=== PATIENT | male | born 1960 | race Caucasian/White ===

== ENCOUNTER 2016-12-05 12:22 | Inpatient (IN) ==
[2016-12-05 13:50] LABS: Hematocrit 39.2 % (37.5-50.1); Hemoglobin 12.9 g/dL (12.9-16.9); Mean Corpuscular HGB Conc 32.9 g/dL (31.6-35.5); Mean Corpuscular Volume 88.1 fL (83.0-100.0); Mean Platelet Volume 10.4 fL (9.4-12.4); Platelet Count 282 K/mcL (140-400); Red Blood Count 4.45 M/mcL (4.19-5.50); Red Cell Distribution Width 14.3 % (11.5-14.5)
[2016-12-05 14:22] LABS: Lymphocytes # 1.6 K/mcL (0.6-4.6); Neutrophils # 9.8 K/mcL (1.6-8.9); Platelet Estimate Normal (Normal); Reactive Lymphocytes Present (Not Present)
[2016-12-05] MEDS ORDERED: Vancomycin 1,000 MG in D5% in Water 250 ML IVPB ONE (16:45)
[2016-12-05] MEDS ORDERED: Piperacillin/Tazobactam 3.375 GM in D5% in Water (Mini-Bag+) 100 ML IVPB ONE (16:45)
[2016-12-05] MEDS ORDERED: 0.9 % Sodium Chloride 1,000 ML IVC ONE (16:45)
--- NOTE | 2016-12-05 16:52 | Emergency Department Note ---
Disposition Clinical Impression: Cellulitis Qualifiers: Site of cellulitis: extremity Site of cellulitis of extremity: lower extremity Laterality: left Qualified Code(s): L03.116 - Cellulitis of left lower limb Disposition: Admitted As Inpatient Condition: Good General Adult HPI - General Chief complaint: ED Extremity Problem,Nontraumatic Stated complaint: leg swelling Time Seen by Provider: 12/05/16 16:30 Source: patient Limitations: no limitations - History of Present Illness Pain Scale: 10 - Related Data Home Medications Medication Instructions Recorded Confirmed No Known Home Drugs 12/05/16 12/05/16 Allergies Allergy/AdvReac Type Severity Reaction Status Date / Time No Known Allergies Allergy Verified 03/26/15 05:28 Past Medical History - Past Medical History Medical history: Reports: hypertension, other Surgical history: Reports: no surgical history Psychiatric history: Reports: no psych history - Social History Smoking Status: Former smoker Smokeless Tobacco Status: No Alcohol use: Reports: occasionally Drug use: Reports: none Physical Exam - General Limitations: no limitations General appearance: alert, in no apparent distress Course Vital Signs Temperature 99.1 F 12/05/16 12:34 Pulse Rate 84 12/05/16 12:34 Respiratory Rate 18 12/05/16 12:34 Blood Pressure 152/76 12/05/16 12:34 O2 Sat by Pulse Oximetry 95 12/05/16 12:34 Temperature 99.1 F 12/05/16 12:34 Pulse Rate 84 12/05/16 16:33 Respiratory Rate 19 12/05/16 16:33 Blood Pressure 159/81 12/05/16 16:33 O2 Sat by Pulse Oximetry 95 12/05/16 16:33 Oxygen Delivery Oxygen Delivery Room Air Medical Decision Making - Lab Data Result diagrams: 12/05/16 13:35 12/05/16 17:12 Lab Results 12/05/16 12/05/16 12/05/16 Range/Units 13:35 13:35 13:35 WBC 12.9 H (4.3-11.1) K/mcL RBC 4.45 (4.19-5.50) M/mcL Hgb 12.9 (12.9-16.9) g/dL Hct 39.2 (37.5-50.1) % MCV 88.1 (83.0-100.0) fL MCH 29.0 (28.0-33.3) pg MCHC 32.9 (31.6-35.5) g/dL RDW 14.3 (11.5-14.5) % Plt Count 282 (140-400) K/mcL MPV 10.4 (9.4-12.4) fL Seg Neutrophils % 60.0 % Band Neutrophils % 16.0 H (0-4) % Lymphocytes % 12.0 % Monocytes % 8.0 % Metamyelocytes % 2.0 H (0) % Myelocytes % 2.0 H (0) % Neutrophils # 9.8 H (1.6-8.9) K/mcL Lymphocytes # 1.6 (0.6-4.6) K/mcL Monocytes # 1.0 (0.0-1.3) K/mcL Reactive Lymphocytes Present A (Not Present) Platelet Estimate Normal (Normal) PT (9.4-12.1) Seconds INR APTT (26.0-36.0) Seconds Sodium (136-145) mEq/L Potassium (3.5-4.5) mEq/L Chloride (98-109) mEq/L Carbon Dioxide (19-29) mEq/L BUN (8-26) mg/dL Creatinine (0.72-1.25) mg/dL Est GFR ( Amer) (> 60) Est GFR (Non-Af Amer) (> 60) BUN/Creatinine Ratio (6-26) Glucose (70-99) mg/dL Calculated Osmolality (280-300) Lactic Acid (0.5-2.2) mmol/L Calcium (8.6-10.8) mg/dL Phosphorus (2.3-4.7) mg/dL Magnesium (1.6-2.6) mg/dL Total Bilirubin (0.2-1.2) mg/dL Direct Bilirubin (0.0-0.5) mg/dL Indirect Bilirubin (0.0-1.2) mg/dL AST (5-34) Units/L ALT (0-55) Units/L Alkaline Phosphatase (38-126) Units/L Troponin I 0.00 (0-0.03) ng/mL B-Natriuretic Peptide 22 (0-100) pg/mL Serum Total Protein (6.0-8.3) g/dL Albumin (3.5-5.0) g/dL Globulin (2.4-3.5) g/dL Albumin/Globulin Ratio (1.1-2.2) 12/05/16 12/05/16 12/05/16 Range/Units 17:12 17:12 17:12 WBC (4.3-11.1) K/mcL RBC (4.19-5.50) M/mcL Hgb (12.9-16.9) g/dL Hct (37.5-50.1) % MCV (83.0-100.0) fL MCH (28.0-33.3) pg MCHC (31.6-35.5) g/dL RDW (11.5-14.5) % Plt Count (140-400) K/mcL MPV (9.4-12.4) fL Seg Neutrophils % % Band Neutrophils % (0-4) % Lymphocytes % % Monocytes % % Metamyelocytes % (0) % Myelocytes % (0) % Neutrophils # (1.6-8.9) K/mcL Lymphocytes # (0.6-4.6) K/mcL Monocytes # (0.0-1.3) K/mcL Reactive Lymphocytes (Not Present) Platelet Estimate (Normal) PT 12.4 H (9.4-12.1) Seconds INR 1.1 APTT 29.1 (26.0-36.0) Seconds Sodium 137 (136-145) mEq/L Potassium 3.0 L (3.5-4.5) mEq/L Chloride 98 (98-109) mEq/L Carbon Dioxide 28 (19-29) mEq/L BUN 9 (8-26) mg/dL Creatinine 0.96 (0.72-1.25) mg/dL Est GFR ( Amer) > 60 (> 60) Est GFR (Non-Af Amer) > 60 (> 60) BUN/Creatinine Ratio 9 (6-26) Glucose 122 H (70-99) mg/dL Calculated Osmolality 284 (280-300) Lactic Acid 0.9 (0.5-2.2) mmol/L Calcium 9.4 (8.6-10.8) mg/dL Phosphorus 3.4 (2.3-4.7) mg/dL Magnesium 1.7 (1.6-2.6) mg/dL Total Bilirubin 0.6 (0.2-1.2) mg/dL Direct Bilirubin 0.2 (0.0-0.5) mg/dL Indirect Bilirubin 0.4 (0.0-1.2) mg/dL AST 24 (5-34) Units/L ALT 12 (0-55) Units/L Alkaline Phosphatase 78 (38-126) Units/L Troponin I (0-0.03) ng/mL B-Natriuretic Peptide (0-100) pg/mL Serum Total Protein 7.3 (6.0-8.3) g/dL Albumin 2.7 L (3.5-5.0) g/dL Globulin 4.6 H (2.4-3.5) g/dL Albumin/Globulin Ratio 0.6 L (1.1-2.2) Attestation Statement - Attestation Attestation: I examined this patient and my medical decision-making was reviewed with the COOKING SHOW HOST/PA/Advanced Practice Nurse/Resident Physician. I agree with the documented findings, disposition and treatment plan as described except to the extent set forth below. Patient had emergency department complaining of left leg infection. History of the same multiple times. Patient denies fever. Denies chest pain or trouble breathing. On examination of the erythema warmth and swelling to the left rizo. No areas of fluctuance. Plan. Patient has a bandemia 15%. We will start IV antibiotics and admit. Will rule out for DVT. 30 minutes of critical care exclusive of separately billable procedures. Negative for DVT. Admitted to medicine.
--- NOTE | 2016-12-05 17:10 | Emergency Department Note ---
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 He has had many episodes of cellulitis to his LLE and this is simliar in presentation. Patinet states that he has been experiencing fevers with nausea and vomitting and is concerned he may have another infection in his leg. Aryanet states rigors/chills and subjective fevers have been present and this has been going on for the past 4 days. Aryanet denies chest pain, shortness of breath, abdominal pain. He has no history of DVTs in the past. Movemenet makes it worse. Pain Scale: 10 - Related Data Home Medications Medication Instructions Recorded Confirmed No Known Home Drugs 12/05/16 12/05/16 Allergies Allergy/AdvReac Type Severity Reaction Status Date / Time No Known Allergies Allergy Verified 03/26/15 05:28 Constitutional: Reports: fever, chills, weakness. Denies: weight change Eyes: Denies: eye pain, eye discharge, vision change ENT ED: Denies: ear pain, throat pain, dental pain, hearing loss, epistaxis, congestion, dysphagia Cardiovascular: Denies: chest pain, palpitations, dyspnea on exertion, edema, syncope Respiratory: Denies: cough, dyspnea, wheezes, hemoptysis, stridor Gastrointestinal: Denies: abdominal pain, nausea, vomiting, diarrhea, constipation, hematemesis, melena, hematochezia Genitourinary: Denies: urgency, dysuria, frequency, hematuria Musculoskeletal: Reports: other (LLE swelling and infection). Denies: back pain , neck pain, arthralgia, myalgia Integumentary: Denies: rash, abrasion, lesions Neurological: Denies: headache, weakness, numbness, paresthesias, confusion, abnormal gait, vertigo Psychiatric: Denies: anxiety, depression, suicidal thoughts, homicidal thoughts , auditory hallucinations, visual hallucinations Endocrine: Denies: fatigue Hematological/Lymphatic: Denies: easy bleeding, easy bruising Allergic/Immunologic: Denies: facial swelling, urticaria Past Medical History - Past Medical History Medical history: Reports: hypertension, other Surgical history: Reports: no surgical history Psychiatric history: Reports: no psych history - Social History Smoking Status: Former smoker Smokeless Tobacco Status: No Alcohol use: Reports: occasionally Drug use: Reports: none Physical Exam - General Limitations: no limitations General appearance: alert, in no apparent distress - Head Head exam: atraumatic, normocephalic, normal inspection - Eye Eye exam: Present: normal appearance, PERRL, EOMI - Expanded Eye Exam Pupils: Left: reactive - ENT ENT exam: normal exam, normal oropharynx, mucous membranes moist - Expanded ENT Exam External ear exam: Present: normal external inspection Mouth exam: Present: normal external inspection Teeth exam: Present: normal inspection Throat exam: Present: normal inspection - Neck Neck exam: Present: normal inspection, full ROM, trachea midline - Chest Chest inspection: Present: normal inspection, symmetric chest wall rise - Respiratory Respiratory exam: Present: normal lung sounds bilaterally - Cardiovascular Cardiovascular exam: Present: regular rate, normal rhythm, normal heart sounds - Abdominal Exam Abdominal exam: Present: soft, Non-Tender. Absent: tenderness, distention, guarding, rebound, rigidity - Extremities Exam Extremities exam: Present: normal inspection, full ROM. Absent: tenderness, pedal edema - Expanded Upper Extremity Exam Shoulder exam: Present: normal inspection, full ROM Arm exam: Present: normal inspection, full ROM Elbow exam: Present: normal inspection, full ROM Forearm/Wrist exam: Present: normal inspection, full ROM Hand exam: Present: normal inspection, full ROM Vascular exam: Normal: capillary refill, radial pulse - Expanded Lower Extremity Exam Hip/Pelvis exam: Present: normal inspection, full ROM Upper leg exam: Present: normal inspection, full ROM 1 - LLE cellulitis; erythema, drainge of serious fluid from skin, no obvious areas of flunctuance. Knee exam: Present: normal inspection, full ROM Lower leg exam: Present: normal inspection, full ROM, tenderness, swelling, erythema. Absent: abrasion, laceration, deformity, crepitus Ankle exam: Present: normal inspection, full ROM Foot/toe exam: Present: normal inspection, full ROM Neurovascular/Tendon exam: Present: normal capillary refill. Absent: motor deficit, sensory deficit, tendon deficit, foot drop Gait: not tested/not observed - Back Exam Back exam: Present: normal inspection, full ROM. Absent: tenderness - Neurological Exam Neurological exam: Present: alert, oriented X3 - Expanded Neurological Exam Patient oriented to: Present: person, place, time Speech: Present: fluid speech Coma Scale Eye Opening: Spontaneous Coma Scale Motor Response: Obeys Commands Coma Scale Verbal Response: Oriented Coma Scale Total: 15 - Psychiatric Psychiatric exam: Present: normal affect, normal mood - Skin Skin exam: Present: warm, dry, intact, normal color Course Course Narrative: we will do a DVT US r/o study in additin to sepsis workup and admit to the medicine service. Navjot/Elvira started - Consultations Consultation #1: discussed case with Dr. Corona and she accepts patinet for admission. PAtinetis agreeable to plan. Time: 18:36 Vital Signs Temperature 99.1 F 12/05/16 12:34 Pulse Rate 84 12/05/16 12:34 Respiratory Rate 18 12/05/16 12:34 Blood Pressure 152/76 12/05/16 12:34 O2 Sat by Pulse Oximetry 95 12/05/16 12:34 Temperature 99.1 F 12/05/16 12:34 Pulse Rate 84 12/05/16 16:33 Respiratory Rate 19 12/05/16 16:33 Blood Pressure 159/81 12/05/16 16:33 O2 Sat by Pulse Oximetry 95 12/05/16 16:33 Oxygen Delivery Oxygen Delivery Room Air Extremity Problem, Nontraumati - Lab Data Result diagrams: 12/05/16 13:35 12/05/16 17:12 Lab Results 12/05/16 12/05/16 12/05/16 Range/Units 13:35 13:35 13:35 WBC 12.9 H (4.3-11.1) K/mcL RBC 4.45 (4.19-5.50) M/mcL Hgb 12.9 (12.9-16.9) g/dL Hct 39.2 (37.5-50.1) % MCV 88.1 (83.0-100.0) fL MCH 29.0 (28.0-33.3) pg MCHC 32.9 (31.6-35.5) g/dL RDW 14.3 (11.5-14.5) % Plt Count 282 (140-400) K/mcL MPV 10.4 (9.4-12.4) fL Seg Neutrophils % 60.0 % Band Neutrophils % 16.0 H (0-4) % Lymphocytes % 12.0 % Monocytes % 8.0 % Metamyelocytes % 2.0 H (0) % Myelocytes % 2.0 H (0) % Neutrophils # 9.8 H (1.6-8.9) K/mcL Lymphocytes # 1.6 (0.6-4.6) K/mcL Monocytes # 1.0 (0.0-1.3) K/mcL Reactive Lymphocytes Present A (Not Present) Platelet Estimate Normal (Normal) PT (9.4-12.1) Seconds INR APTT (26.0-36.0) Seconds Sodium (136-145) mEq/L Potassium (3.5-4.5) mEq/L Chloride (98-109) mEq/L Carbon Dioxide (19-29) mEq/L BUN (8-26) mg/dL Creatinine (0.72-1.25) mg/dL Est GFR ( Amer) (> 60) Est GFR (Non-Af Amer) (> 60) BUN/Creatinine Ratio (6-26) Glucose (70-99) mg/dL Calculated Osmolality (280-300) Lactic Acid (0.5-2.2) mmol/L Calcium (8.6-10.8) mg/dL Phosphorus (2.3-4.7) mg/dL Magnesium (1.6-2.6) mg/dL Total Bilirubin (0.2-1.2) mg/dL Direct Bilirubin (0.0-0.5) mg/dL Indirect Bilirubin (0.0-1.2) mg/dL AST (5-34) Units/L ALT (0-55) Units/L Alkaline Phosphatase (38-126) Units/L Troponin I 0.00 (0-0.03) ng/mL B-Natriuretic Peptide 22 (0-100) pg/mL Serum Total Protein (6.0-8.3) g/dL Albumin (3.5-5.0) g/dL Globulin (2.4-3.5) g/dL Albumin/Globulin Ratio (1.1-2.2) 12/05/16 12/05/16 12/05/16 Range/Units 17:12 17:12 17:12 WBC (4.3-11.1) K/mcL RBC (4.19-5.50) M/mcL Hgb (12.9-16.9) g/dL Hct (37.5-50.1) % MCV (83.0-100.0) fL MCH (28.0-33.3) pg MCHC (31.6-35.5) g/dL RDW (11.5-14.5) % Plt Count (140-400) K/mcL MPV (9.4-12.4) fL Seg Neutrophils % % Band Neutrophils % (0-4) % Lymphocytes % % Monocytes % % Metamyelocytes % (0) % Myelocytes % (0) % Neutrophils # (1.6-8.9) K/mcL Lymphocytes # (0.6-4.6) K/mcL Monocytes # (0.0-1.3) K/mcL Reactive Lymphocytes (Not Present) Platelet Estimate (Normal) PT 12.4 H (9.4-12.1) Seconds INR 1.1 APTT 29.1 (26.0-36.0) Seconds Sodium 137 (136-145) mEq/L Potassium 3.0 L (3.5-4.5) mEq/L Chloride 98 (98-109) mEq/L Carbon Dioxide 28 (19-29) mEq/L BUN 9 (8-26) mg/dL Creatinine 0.96 (0.72-1.25) mg/dL Est GFR ( Amer) > 60 (> 60) Est GFR (Non-Af Amer) > 60 (> 60) BUN/Creatinine Ratio 9 (6-26) Glucose 122 H (70-99) mg/dL Calculated Osmolality 284 (280-300) Lactic Acid 0.9 (0.5-2.2) mmol/L Calcium 9.4 (8.6-10.8) mg/dL Phosphorus 3.4 (2.3-4.7) mg/dL Magnesium 1.7 (1.6-2.6) mg/dL Total Bilirubin 0.6 (0.2-1.2) mg/dL Direct Bilirubin 0.2 (0.0-0.5) mg/dL Indirect Bilirubin 0.4 (0.0-1.2) mg/dL AST 24 (5-34) Units/L ALT 12 (0-55) Units/L Alkaline Phosphatase 78 (38-126) Units/L Troponin I (0-0.03) ng/mL B-Natriuretic Peptide (0-100) pg/mL Serum Total Protein 7.3 (6.0-8.3) g/dL Albumin 2.7 L (3.5-5.0) g/dL Globulin 4.6 H (2.4-3.5) g/dL Albumin/Globulin Ratio 0.6 L (1.1-2.2) - EKG Data EKG attestation: Yes I reviewed and interpreted this EKG. EKG results narrative: NSR with rate of 82. NO STEMI. normal intervals. no change from old ekg. [id number]
[2016-12-05 17:29] LABS: INR 1.1; Prothrombin Time 12.4 Seconds (9.4-12.1)
[2016-12-05 17:31] LABS: Activated Partial Thrombo Time 29.1 Seconds (26.0-36.0)
[2016-12-05] MEDS ORDERED: *HR* Morphine 2 MG/ML SYRINGE IV ONE (17:32)
[2016-12-05 17:36] LABS: Alanine Aminotransferase 12 Units/L (0-55); Albumin 2.7 g/dL (3.5-5.0); Albumin/Globulin Ratio 0.6 (1.1-2.2); Alkaline Phosphatase 78 Units/L (38-126); Aspartate Amino Transferase 24 Units/L (5-34); BUN/Creatinine Ratio 9 (6-26); Bilirubin,Direct 0.2 mg/dL (0.0-0.5); Bilirubin,Indirect 0.4 mg/dL (0.0-1.2); Bilirubin,Total 0.6 mg/dL (0.2-1.2); Blood Urea Nitrogen 9 mg/dL (8-26); Calcium 9.4 mg/dL (8.6-10.8); Carbon Dioxide 28 mEq/L (19-29); Chloride 98 mEq/L (98-109); Globulin 4.6 g/dL (2.4-3.5); Glucose 122 mg/dL (70-99); Magnesium 1.7 mg/dL (1.6-2.6); Osmolality,Calculated 284 (280-300); Phosphorous 3.4 mg/dL (2.3-4.7); Sodium 137 mEq/L (136-145); Total Protein 7.3 g/dL (6.0-8.3); eGFR For African Americans > 60 (> 60); eGFR For Non-African Americans > 60 (> 60)
[2016-12-06] MEDS ORDERED: Pantoprazole 40 MG VIAL IVP STA (00:01)
[2016-12-06] MEDS ORDERED: *HR* Promethazine 25 MG/ML VIAL IVP PRN (00:01)
[2016-12-06] MEDS ORDERED: Benzonatate 100 MG CAPSULE PO PRN (00:01)
[2016-12-06] MEDS ORDERED: Naloxone 0.4 MG/ML INJ IVP PRN (00:01)
--- NOTE | 2016-12-06 00:12 | Internal Med History&Physical ---
Date of Encounter: 12/05/16 Time of Encounter: 23:00 Assessment and Plan (1) SIRS due to infectious process without acute organ dysfunction Current visit: Yes Status: Acute . (2) Sepsis affecting skin Current visit: Yes Status: Acute . (3) Morbid obesity with BMI of 50.0-59.9, adult Current visit: Yes Status: Chronic . (4) Cellulitis of left lower extremity Current visit: Yes Status: Acute . Internal Medicine - H&P: HPI Chief complaint: Pain and swelling of left leg Admitted From: Emergency Dept Plans for Post Hospital Care: Home History of present illness: Mr. Hi is a 56 year old male patient is admitted to the [facility] the emergency department he presents with reports of pain and swelling of his left lower extremity. He presents with a history of recurring lower extremity edema and cellulitis primarily of the left lower extremity of several years duration. Originally began following a traumatic laceration to the left lower extremity with left a slow healing venous stasis ulceration. From that point forward recurring acute cellulitis episodes began. He denies any prior history of diagnosed DVTs or V note thromboembolic events requiring short-term or chronic anticoagulation. Denies any acknowledgment of a specific diagnosis of the type of infection experienced. Heis experiencing subjective fevers with nausea with episodes of emesis and rigorous chills and sweats the last 4-5 days prior to presentation. He denies any associated upper or lower respiratory complaints chest pain abdominal pain and flank pain. Denies diarrhea dysuria frequency productive cough. States that current symptoms and appearance of his leg is reminiscent of the last time that he had sepsis due to an infection in his leg. Knowledge is some blistering on the surface and drainage without formation of the disc distinct abscess or ulceration. Chronic medical problems include: Morbid obesity, hypertension, dyslipidemia, GIGI CPAP noncompliant, anemia unspecified, cardiomegaly/CHF unspecified, impaired glucose tolerance/ borderline type II DM, lower extremity venous insufficiency, former smoker. Findings in ED: temperature 99.1 pulse 84 respirations 18 and BP 159/81 O2 saturation 95% room air. WBC 12.9 hemoglobin 12.9 platelets 282,000. 60% banded neutrophils. Left shift with presence of metamyelocytes and myelocytes increased neutrophils and reactive lymphocytes. Troponin 0.00. B natruretic peptide 22. PT 12.4 INR 1.1 PTT 29.1. Metabolic panel normal except potassium 3.0 glucose 122. BUN 9 creatinine 0.96. Lactic acid 0.9. Albumin 2.7 with total protein 7.3. Function studies normal. Preliminary impression suggests acute sepsis/SIRS present at admission secondary to recurrent left lower extremity cellulitis with potential abscess. Question of infection is suggestive of recurring MRSA further elucidation necessary. Patient is at increased for invasive infection due to his physical deconditioning, morbid obesity, lower extremity venous insufficiency and potential venostasis. Presence of a underlying combined immunodeficiency state cannot be validated at this time. Workup and treatments will proceed comprehensively. Consultative opinions will be sought as clinical circumstances justify. Cumulative studies reviewed, considered and discussed. Given the patient's presenting concerns, past medical history, clinical findings and symptoms, he was admitted at this time to undergo further evaluation and disposition. Orders written. Past Med Surg Social Fam HX - Past Medical History Source: old records reviewed Medical history: arthritis, cardiomyopathy, CHF, diabetes (History of impaired glucose tolerance but no definitive diagnosis of diabetes mellitus.), hyperlipidemia, hypertension, renal disease, venous stasis, other Psychiatric history: no psych history - Past Surgical History Surgical History: no surgical history - Social History Smoking Status: Former smoker Smokeless Tobacco Status: No Alcohol use: occasionally Drug use: none Occupational status: employed Current living situation: Home, With Family Activity Level: Independent ambulation, Mostly sedentary Recent Out of Country Travel Within the Last 8 Weeks: No Exposure or Possible Exposure to Illness During Travel: No - Family History Mother Family Member Ethnicity: Non- Living Status: Cause of : Unknown Hx Family Cardiac Disorders: No Hx Family Respiratory Disorders: No Hx Family Cancer: No Hx Family GI Disorders: No Hx Family Endocrine Disorder: Yes (DM) Hx Family Neuromuscular Disorders: No Hx Family Neurologic Disorders: No Hx Family HEENT Disorders: No Hx Family Autoimmune Disorders: No Internal Medicine - H&P: Meds No Known Home Drugs 12/05/16 [History] Allergies No Known Allergies Allergy (Verified 03/26/15 05:28) All Systems PM: A 10-system review of systems was performed and is negative for pertinent findings except as documented above in the HPI. Patient Problems (Last Updated 12/06/16 @ 00:12 by Stanislav Macedo MD) Sepsis (Acute Medical) A41.9 Cellulitis and abscess of leg (Acute Medical) L02.419, L03.119 Morbid obesity with BMI of 50.0-59.9, adult (Acute Medical) Z68.43 Headache (Acute Medical) R51 Leukocytosis (Acute Medical) D72.829 Hypertension (Acute Medical) I10 Hypertension (Chronic Medical) I10 Normocytic anemia (Acute Medical) D64.9 Cellulitis (Acute Medical) L03.90 Hematuria (Acute Medical) R31.9 Hypokalemia (Resolved Medical) E87.6 Edema (Acute Medical) R60.9 IFG (impaired fasting glucose) (Acute Medical) R73.01 Cellulitis (Acute Medical) L03.90 Cellulitis of left lower extremity (Acute Medical) L03.116 Tinea pedis (Acute Medical) B35.3 DVT prophylaxis (Acute Medical) [id number] Herpes labialis (Acute Medical) B00.1 Cellulitis (Acute Medical) L03.90 SIRS due to infectious process without acute organ dysfunction (Acute Medical) A41.9 Sepsis affecting skin (Acute Medical) L02.91 - Constitutional Constitutional: as per HPI, chills, excessive sweating, fatigue, fever(s), malaise, weakness, other, no night sweats - EENT Eyes: as per HPI, no change in vision, no discharge, no pain, no photophobia Ears: as per HPI, no ear discharge, no ear pain, no tinnitus Nose, mouth and throat: as per HPI, no dysphagia, no nasal discharge, no neck pain, no sore throat - Cardiovascular Cardiovascular ROS IM: as per HPI, edema, lightheadedness, other, no chest pain , no diaphoresis, no dyspnea, no palpitations, no syncope - Respiratory Respiratory: as per HPI, no cough, no dyspnea, no wheezing, no excessive phlegm production - Gastrointestinal Gastrointestinal: as per HPI, no abdominal pain, no diarrhea, no hematemesis, no hematochezia, no melena, no nausea, no vomiting - Genitourinary Genitourinary ROS male: as per HPI - Musculoskeletal Musculoskeletal ROS IM: as per HPI, no numbness, no tingling - Integumentary Integumentary IM: as per HPI, erythema, new lesions, non-healing lesions, rash, other, no unusual bruising - Neurological Neurological ROS: as per HPI, no confusion, no convulsions, no focal weakness, no numbness, no tingling, no tremor(s) - Psychiatric Psychiatric: as per HPI - Endocrine Endocrine IM: as per HPI - Hematologic/Lymphatic Hematologic/Lymphatic: as per HPI, no easy bruising - Allergic/Immunologic Allergic/Immunologic: as per HPI - Constitutional Vitals: Temp Pulse Resp BP Pulse Ox 100.4 F H 92 17 164/64 94 12/05/16 20:14 12/05/16 20:14 12/05/16 20:14 12/05/16 20:14 12/05/16 20:14 Vital Signs Temp Pulse Resp BP Pulse Ox 12/05/16 20:14 100.4 F H 92 17 164/64 94 12/05/16 19:31 18 157/83 12/05/16 19:05 86 18 157/83 96 12/05/16 16:33 84 19 159/81 95 12/05/16 12:34 99.1 F 84 18 152/76 95 Intake and Output 12/05/16 12/05/16 12/06/16 15:59 23:59 07:59 Intake Total 0 / 0 Output Total 300 / 300 Balance -300 / -300 Intake: Oral 0 / 0 Output: Urine 300 / 300 Other: # Voids 1 Weight 136.078 kg 165.7 kg General appearance: Present: cooperative, mild distress, A&O X 3, morbidly obese , answers questions appropriately - Head Head exam: Present: atraumatic, normocephalic - Eye Eye exam: Present: EOMI, PERRL, conjuntiva pink, sclera anicteric Pupils: Present: normal accommodation, PERRL - ENT ENT exam: Present: mucous membranes moist, normal oropharynx - Neck Neck exam general surgery: Present: supple, trachea midline. Absent: lymphadenopathy - Respiratory Respiratory exam: Present: decreased breath sounds, CTAB. Absent: accessory muscle use, rales, rhonchi, wheezes - Cardiovascular Cardiovascular exam: Present: distant heart sounds, RRR, +S1, +S2. Absent: diastolic murmur, gallop, rubs, systolic murmur - GI/Abdominal GI/Abdominal exam: Present: normal bowel sounds, soft, no peritoneal signs. Absent: distended, tenderness - Extremities Exam Extremities exam: Present: calf tenderness (Left lower extremity cellulitis with brawny edema and tenderness from ankle to knee), pedal edema, tenderness, warm, radial pulses palpable and symetrical. Absent: cyanotic - Expanded Lower Extremities Exam Lower Leg exam: Present: erythema, normal inspection, swelling, tenderness. Absent: palpable cord Ankle exam: Present: swelling, tenderness. Absent: normal inspection Neuro vascular tendon exam: Present: no vascular compromise. Absent: motor deficit, pulse deficit Gait: Present: not tested/not observed - Neurological Exam Neurological exam: Present: alert, CN II-XII intact, oriented X3, no focal deficits. Absent: pronater drift, facial droop, speech deficit - Psychiatric Psychiatric exam: Present: normal affect, normal mood - Skin Skin exam: Present: dry, erythema, intact, rash, vesicles, warm. Absent: abrasion - Expanded Skin Exam Type of lesion: Present: rash Distribution of rash: Present: LLE Description of rash: Present: blisters, confluent, erythematous, macular, swelling, tenderness Internal Med - H&P Results - Labs CBC & Chem 7: 12/06/16 04:25 12/06/16 04:25 Labs: Short CBC 12/05/16 Range/Units 13:35 WBC 12.9 H (4.3-11.1) K/mcL Hgb 12.9 (12.9-16.9) g/dL Hct 39.2 (37.5-50.1) % Plt Count 282 (140-400) K/mcL Neutrophils # 9.8 H (1.6-8.9) K/mcL BMP 12/05/16 Range/Units 17:12 Sodium 137 (136-145) mEq/L Potassium 3.0 L (3.5-4.5) mEq/L Chloride 98 (98-109) mEq/L Carbon Dioxide 28 (19-29) mEq/L BUN 9 (8-26) mg/dL Creatinine 0.96 (0.72-1.25) mg/dL Glucose 122 H (70-99) mg/dL Calcium 9.4 (8.6-10.8) mg/dL Cardiac Enzymes 12/05/16 Range/Units 13:35 Troponin I 0.00 (0-0.03) ng/mL Liver Function 12/05/16 Range/Units 17:12 Total Bilirubin 0.6 (0.2-1.2) mg/dL Direct Bilirubin 0.2 (0.0-0.5) mg/dL AST 24 (5-34) Units/L ALT 12 (0-55) Units/L Alkaline Phosphatase 78 (38-126) Units/L Albumin 2.7 L (3.5-5.0) g/dL Abnormal lab results WBC 12.9 K/mcL (4.3-11.1) H 12/05/16 13:35 Band Neutrophils % 16.0 % (0-4) H 12/05/16 13:35 Metamyelocytes % 2.0 % (0) H 12/05/16 13:35 Myelocytes % 2.0 % (0) H 12/05/16 13:35 Neutrophils # 9.8 K/mcL (1.6-8.9) H 12/05/16 13:35 Reactive Lymphocytes Present (Not Present) A 12/05/16 13:35 PT 12.4 Seconds (9.4-12.1) H 12/05/16 17:12 Potassium 3.0 mEq/L (3.5-4.5) L 12/05/16 17:12 Glucose 122 mg/dL (70-99) H 12/05/16 17:12 Albumin 2.7 g/dL (3.5-5.0) L 12/05/16 17:12 Globulin 4.6 g/dL (2.4-3.5) H 12/05/16 17:12 Albumin/Globulin Ratio 0.6 (1.1-2.2) L 12/05/16 17:12 Laboratory Results WBC 12.9 K/mcL (4.3-11.1) H 12/05/16 13:35 RBC 4.45 M/mcL (4.19-5.50) 12/05/16 13:35 Hgb 12.9 g/dL (12.9-16.9) 12/05/16 13:35 Hct 39.2 % (37.5-50.1) 12/05/16 13:35 MCV 88.1 fL (83.0-100.0) 12/05/16 13:35 MCH 29.0 pg (28.0-33.3) 12/05/16 13:35 MCHC 32.9 g/dL (31.6-35.5) 12/05/16 13:35 RDW 14.3 % (11.5-14.5) 12/05/16 13:35 Plt Count 282 K/mcL (140-400) 12/05/16 13:35 MPV 10.4 fL (9.4-12.4) 12/05/16 13:35 Seg Neutrophils % 60.0 % 12/05/16 13:35 Band Neutrophils % 16.0 % (0-4) H 12/05/16 13:35 Lymphocytes % 12.0 % 12/05/16 13:35 Monocytes % 8.0 % 12/05/16 13:35 Metamyelocytes % 2.0 % (0) H 12/05/16 13:35 Myelocytes % 2.0 % (0) H 12/05/16 13:35 Neutrophils # 9.8 K/mcL (1.6-8.9) H 12/05/16 13:35 Lymphocytes # 1.6 K/mcL (0.6-4.6) 12/05/16 13:35 Monocytes # 1.0 K/mcL (0.0-1.3) 12/05/16 13:35 Reactive Lymphocytes Present (Not Present) A 12/05/16 13:35 Platelet Estimate Normal (Normal) 12/05/16 13:35 PT 12.4 Seconds (9.4-12.1) H 12/05/16 17:12 INR 1.1 12/05/16 17:12 APTT 29.1 Seconds (26.0-36.0) 12/05/16 17:12 Sodium 137 mEq/L (136-145) 12/05/16 17:12 Potassium 3.0 mEq/L (3.5-4.5) L 12/05/16 17:12 Chloride 98 mEq/L (98-109) 12/05/16 17:12 Carbon Dioxide 28 mEq/L (19-29) 12/05/16 17:12 BUN 9 mg/dL (8-26) 12/05/16 17:12 Creatinine 0.96 mg/dL (0.72-1.25) 12/05/16 17:12 Est GFR ( Amer) > 60 (> 60) 12/05/16 17:12 Est GFR (Non-Af Amer) > 60 (> 60) 12/05/16 17:12 BUN/Creatinine Ratio 9 (6-26) 12/05/16 17:12 Glucose 122 mg/dL (70-99) H 12/05/16 17:12 Calculated Osmolality 284 (280-300) 12/05/16 17:12 Lactic Acid 1.1 mmol/L (0.5-2.2) 12/05/16 20:21 Calcium 9.4 mg/dL (8.6-10.8) 12/05/16 17:12 Phosphorus 3.4 mg/dL (2.3-4.7) 12/05/16 17:12 Magnesium 1.7 mg/dL (1.6-2.6) 12/05/16 17:12 Total Bilirubin 0.6 mg/dL (0.2-1.2) 12/05/16 17:12 Direct Bilirubin 0.2 mg/dL (0.0-0.5) 12/05/16 17:12 Indirect Bilirubin 0.4 mg/dL (0.0-1.2) 12/05/16 17:12 AST 24 Units/L (5-34) 12/05/16 17:12 ALT 12 Units/L (0-55) 12/05/16 17:12 Alkaline Phosphatase 78 Units/L (38-126) 12/05/16 17:12 Troponin I 0.00 ng/mL (0-0.03) 12/05/16 13:35 B-Natriuretic Peptide 22 pg/mL (0-100) 12/05/16 13:35 Serum Total Protein 7.3 g/dL (6.0-8.3) 12/05/16 17:12 Albumin 2.7 g/dL (3.5-5.0) L 12/05/16 17:12 Globulin 4.6 g/dL (2.4-3.5) H 12/05/16 17:12 Albumin/Globulin Ratio 0.6 (1.1-2.2) L 12/05/16 17:12 Impressions Chest X-Ray 12/05/16 12:43 IMPRESSION: Stable chest with cardiomegaly and mild pulmonary vascular congestion. D/ / Wendy Mancera MD / Wendy Mancera MD Interpreting Provider: Wendy Mancera MD
[2016-12-06] MEDS: *HR* OxyCODONE Immed Rel 5 MG TABLET PO PRN ×2 (00:57→09:00)
[2016-12-06] MEDS: 0.9 % Sodium Chloride 1,000 ML IVC SCH (00:57)
[2016-12-06] MEDS ORDERED: Vancomycin 2,000 MG in D5% in Water 250 ML IVPB SCH (01:00)
[2016-12-06] MEDS ORDERED: Menthol 9.1 MG LOZENGE PO PRN (01:33)
[2016-12-06 04:58] LABS: VBG HCO3 31.2 mEq/L (21-27); VBG PH 7.37 pH Units (7.32-7.42)
[2016-12-06 05:05] LABS: Hematocrit 36.8 % (37.5-50.1); Hemoglobin 11.8 g/dL (12.9-16.9); Mean Corpuscular HGB Conc 32.1 g/dL (31.6-35.5); Mean Corpuscular Hemoglobin 28.8 pg (28.0-33.3); Mean Corpuscular Volume 89.8 fL (83.0-100.0); Mean Platelet Volume 10.6 fL (9.4-12.4); Platelet Count 246 K/mcL (140-400); Red Cell Distribution Width 14.3 % (11.5-14.5)
[2016-12-06 05:15] LABS: Alanine Aminotransferase 13 Units/L (0-55); Albumin 2.4 g/dL (3.5-5.0); Albumin/Globulin Ratio 0.6 (1.1-2.2); Alkaline Phosphatase 72 Units/L (38-126); Aspartate Amino Transferase 23 Units/L (5-34); BUN/Creatinine Ratio 10 (6-26); Bilirubin,Total 0.4 mg/dL (0.2-1.2); Blood Urea Nitrogen 9 mg/dL (8-26); Calcium 8.8 mg/dL (8.6-10.8); Carbon Dioxide 26 mEq/L (19-29); Chloride 100 mEq/L (98-109); Creatine Kinase 240 Units/L (30-200); Globulin 4.3 g/dL (2.4-3.5); Glucose 104 mg/dL (70-99); Osmolality,Calculated 283 (280-300); Phosphorous 4.1 mg/dL (2.3-4.7); Potassium 3.3 mEq/L (3.5-4.5); Sodium 137 mEq/L (136-145); Total Protein 6.7 g/dL (6.0-8.3); eGFR For African Americans > 60 (> 60); eGFR For Non-African Americans > 60 (> 60)
[2016-12-06 05:37] LABS: Hemoglobin A1C 5.5 %; Thyroid Stimulating Hormone 2.574 mcIU/mL (0.350-4.840)
[2016-12-06] MEDS ORDERED: Ampicillin/Sulbactam 1,500 MG in 0.9 % Sodium Chloride Mini Bag 100 ML IVPB SCH (06:00)
[2016-12-06 06:13] LABS: Large Platelets Present (Not Present); Lymphocytes # 1.8 K/mcL (0.6-4.6); Monocytes # 1.4 K/mcL (0.0-1.3); Neutrophils # 7.3 K/mcL (1.6-8.9); Platelet Estimate Normal (Normal)
[2016-12-06] MEDS: Vancomycin 2,000 MG in D5% in Water 500 ML IVPB SCH ×2 (06:42→18:39)
[2016-12-06] MEDS: *HR* Enoxaparin 30 MG/0.3 ML SYRINGE SQ SCH ×2 (06:53→16:49)
--- NOTE | 2016-12-06 06:53 | Venous Imaging Report ---
LE Venous Duplex Patient Name:Epifanio Hi Order Number:[id number] Procedure Date:12/05/2016 Date:1960Age:56 yrs Gender:Male Location:[facility] ED Room #: ER6 [place] Warp:Cat Titus Referring MD:Lorraine Briceno DO maintenance director:None Reading MD:Shalom Charles MD Primary Indications:r/o DVT Secondary Indications: Impressions: Normal left lower extremity deep and superficial venous exam. Normal contralateral common femoral vein. Recommendations: After imaging the patient returned to their room. Gave vascular preliminary results to Indu Encinas in the emergency department on 12/05/2016 at 18:15. Test completed on 12/05/2016 at 6:08:00 pm. Findings Venous Duplex Results: Right: Venous imaging of the lower extremity reveals full patency and normal vessel compressibility of the right common femoral. Doppler signals in the evaluated veins were normal. Left: Venous imaging of the lower extremity reveals full patency and normal vessel compressibility of the left distal iliac, left common femoral, left superficial femoral, left popliteal, left posterior tibial, left peroneal, left great saphenous and left lesser saphenous. Doppler signals in the evaluated veins were normal. Lower Extremity Venous Duplex Side Vein Compress Spontaneous Flow Augment Diameter (cm) Depth (cm) Left Distal Iliac Normal Yes Phasic Yes Left Common Femoral Normal Yes Phasic Yes Left Superficial Femoral Normal Yes Phasic Yes Left Popliteal Normal Yes Phasic Yes Left Posterior Tibial Normal Yes Phasic Yes Left Peroneal Normal Yes Phasic Yes Left Great Saphenous Normal Yes Phasic Yes Left Lesser Saphenous Normal Yes Phasic Yes Right Common Femoral Normal Yes Phasic Yes Updated by Shalom Charles MD on 12/06/2016 6:48:34 AM electronically signed on 12/06/2016 6:48:57 AM with status of Final
[2016-12-06 07:37] LABS: C-Reactive Protein 205 mg/L (Less than 5)
[2016-12-06] MEDS ORDERED: Nicotine 21 MG PATCH.TD24 TD SCH (09:00)
[2016-12-06] MEDS: Acyclovir 200 MG CAPSULE PO SCH ×4 (09:03→20:21)
[2016-12-06] MEDS ORDERED: D5% in Water 1,000 ML IVC PRN (09:11)
[2016-12-06] MEDS ORDERED: Dextrose Gel 15 GM PO PRN ×2 (09:11)
[2016-12-06] MEDS ORDERED: Insulin LISPRO 300 UNITS/3 ML VIAL SQ SCH ×2 (09:11→21:00)
[2016-12-06] MEDS ORDERED: *HR* Dextrose 50 % in Water (Syg) 50 ML SYRINGE IVP PRN (09:11)
[2016-12-06] MEDS: *HR* HYDROmorphone (PF) 1 MG/ML SYRINGE IVP PRN ×2 (10:17→18:10)
--- NOTE | 2016-12-06 12:03 | Electrocardiograph Report ---
[place] [id number] Test Date: 2016-12-05 Pat Name: Epifanio Hi Department: 104 Room: [facility] Gender: M Financial Quantitative Analyst: YUDI : 1960 Requested By: Indu See Order Number: [id number] Reading MD: Julien Hercules MD Measurements Intervals [place] Rate: 82 P: 67 [place]: 190 QRS: 70 QRSD: 143 T: 15 QT: 380 QTc: 418 Interpretive Statements SINUS RHYTHM WITH OCCASIONAL VENTRICULAR PREMATURE COMPLEXES LEFT ATRIAL ENLARGEMENT INTRAVENTRICULAR CONDUCTION DELAY Electronically Signed On 12-06-2016 12:01:43 EDT by Julien Hercules MD
[2016-12-07] MEDS: Acyclovir 200 MG CAPSULE PO SCH ×5 (00:26→20:11)
[2016-12-07] MEDS: 0.9 % Sodium Chloride 1,000 ML IVC SCH ×2 (00:30→20:15)
[2016-12-07] MEDS: *HR* HYDROmorphone (PF) 1 MG/ML SYRINGE IVP PRN ×3 (00:32→11:58)
[2016-12-07 05:12] LABS: Basophils # 0.1 K/mcL (0.0-0.2); Basophils % 0.5 %; Eosinophils # 0.2 K/mcL (0.0-0.6); Eosinophils % 1.8 %; Hematocrit 37.9 % (37.5-50.1); Hemoglobin 12.3 g/dL (12.9-16.9); Immature Granulocytes % 10.2 % (0-4); Lymphocytes # 1.9 K/mcL (0.6-4.6); Lymphocytes % 17.8 %; Mean Corpuscular HGB Conc 32.5 g/dL (31.6-35.5); Mean Corpuscular Hemoglobin 29.4 pg (28.0-33.3); Mean Corpuscular Volume 90.7 fL (83.0-100.0); Mean Platelet Volume 10.9 fL (9.4-12.4); Monocytes # 1.5 K/mcL (0.0-1.3); Monocytes % 13.5 %; Neutrophils # 6.1 K/mcL (1.6-8.9); Platelet Count 290 K/mcL (140-400); Red Blood Count 4.18 M/mcL (4.19-5.50); Red Cell Distribution Width 14.5 % (11.5-14.5); Segmented Neutrophils % 56.2 %
[2016-12-07 05:45] LABS: BUN/Creatinine Ratio 13 (6-26); Blood Urea Nitrogen 10 mg/dL (8-26); Calcium 8.9 mg/dL (8.6-10.8); Carbon Dioxide 25 mEq/L (19-29); Chloride 103 mEq/L (98-109); Glucose 116 mg/dL (70-99); Osmolality,Calculated 286 (280-300); Potassium 4.1 mEq/L (3.5-4.5); Sodium 138 mEq/L (136-145); eGFR For African Americans > 60 (> 60); eGFR For Non-African Americans > 60 (> 60)
[2016-12-07 06:01] LABS: Platelet Estimate Normal (Normal)
[2016-12-07] MEDS: *HR* Enoxaparin 30 MG/0.3 ML SYRINGE SQ SCH ×2 (06:15→17:42)
[2016-12-07] MEDS: *HR* OxyCODONE Immed Rel 5 MG TABLET PO PRN (09:17)
[2016-12-07] MEDS: Vancomycin 1,500 MG in D5% in Water 250 ML IVPB SCH ×2 (10:05→20:11)
--- NOTE | 2016-12-07 19:37 | Internal Med Progress Note ---
Date of Encounter: 12/07/16 Time of Encounter: 19:33 - Assessment and plan (1) Sepsis affecting skin Current Visit: Yes Status: Acute Assessment and plan: Sepsis secondary to left leg cellulitis. CT of the left leg showed extensive circumferential soft tissue edema and skin thickening. No abscess. Blood cultures are negative so far. Continue IV vancomycin. Hold the Unasyn. Given extensive cellulitis, patient may need IV antibiotics at home. (2) Cellulitis Current Visit: No Status: Acute Assessment and plan: left leg cellulitis. Plan as above. Qualifiers: Site of cellulitis: extremity Site of cellulitis of extremity: lower extremity Laterality: left Qualified Code(s): L03.116 - Cellulitis of left lower limb (3) Hypertension Current Visit: No Status: Acute Assessment and plan: Blood pressure is adequate. Qualifiers: Hypertension type: essential hypertension Qualified Code(s): I10 - Essential (primary) hypertension - Subjective Interval history: patient reports improvement of swelling on his left leg, he has noted more discharge coming thru blisters. - Constitutional Vitals: Temp Pulse Resp BP Pulse Ox 98.7 F 62 16 149/79 95 12/07/16 14:54 12/07/16 14:54 12/07/16 14:54 12/07/16 14:54 12/07/16 14:54 General appearance: Present: cooperative, mild distress, A&O X 3, morbidly obese , answers questions appropriately - Eye Eye exam: Present: PERRL, sclera anicteric - Neck Neck exam general surgery: Present: supple, trachea midline. Absent: lymphadenopathy - Respiratory Respiratory exam: Present: CTAB - Cardiovascular Cardiovascular exam: Present: RRR - GI/Abdominal GI/Abdominal exam: Present: normal bowel sounds, soft. Absent: distended, tenderness - Extremities Exam Additional comments: Left leg is significantly swollen with erythema and multiple blisters. there is a blue jonnathan still surrounding cellulitis changes. - Neurological Exam Neurological exam: Present: alert, oriented X3, no focal deficits, strengths equal and symetr throughout. Absent: facial droop, speech deficit Internal Medicine: Result - Labs CBC & Chem 7: 12/07/16 04:30 12/07/16 04:30 Labs: Short CBC 12/07/16 Range/Units 04:30 WBC 10.9 (4.3-11.1) K/mcL Hgb 12.3 L (12.9-16.9) g/dL Hct 37.9 (37.5-50.1) % Plt Count 290 (140-400) K/mcL Neutrophils # 6.1 (1.6-8.9) K/mcL BMP 12/07/16 04:30 Sodium 138 Potassium 4.1 Chloride 103 Carbon Dioxide 25 BUN 10 Creatinine 0.79 Glucose 116 H Calcium 8.9 - ABG Interpretation ABG results: PT/INR, D-dimer PT 12.4 Seconds (9.4-12.1) H 12/05/16 17:12 - Impressions Impressions Lower Extremity CT 12/06/16 09:00 IMPRESSION: Extensive circumferential soft tissue edema and skin thickening are nonspecific. Correlate clinical evidence of cellulitis. No abscess noted. D/ / 12/06/2016 10:52:00 Mik Stubbs MD / perez Interpreting Provider: Mik Stubbs MD Consult Discharge Plan - Plan Referrals: NO,PCP [Primary Care Provider] -
[2016-12-08] MEDS: Acyclovir 200 MG CAPSULE PO SCH ×5 (00:07→19:51)
[2016-12-08] MEDS: *HR* HYDROmorphone (PF) 1 MG/ML SYRINGE IVP PRN ×5 (00:12→22:48)
[2016-12-08] MEDS: *HR* OxyCODONE Immed Rel 5 MG TABLET PO PRN ×3 (01:33→19:51)
[2016-12-08 03:04] LABS: Hematocrit 35.1 % (37.5-50.1); Hemoglobin 11.5 g/dL (12.9-16.9); Mean Corpuscular HGB Conc 32.8 g/dL (31.6-35.5); Mean Corpuscular Hemoglobin 29.9 pg (28.0-33.3); Mean Corpuscular Volume 91.4 fL (83.0-100.0); Mean Platelet Volume 10.6 fL (9.4-12.4); Platelet Count 305 K/mcL (140-400); Red Blood Count 3.84 M/mcL (4.19-5.50); Red Cell Distribution Width 14.2 % (11.5-14.5)
[2016-12-08 03:16] LABS: BUN/Creatinine Ratio 18 (6-26); Blood Urea Nitrogen 13 mg/dL (8-26); Calcium 8.8 mg/dL (8.6-10.8); Carbon Dioxide 31 mEq/L (19-29); Chloride 100 mEq/L (98-109); Glucose 107 mg/dL (70-99); Magnesium 1.7 mg/dL (1.6-2.6); Osmolality,Calculated 287 (280-300); Potassium 3.8 mEq/L (3.5-4.5); Sodium 138 mEq/L (136-145); eGFR For African Americans > 60 (> 60); eGFR For Non-African Americans > 60 (> 60)
[2016-12-08 04:28] LABS: Eosinophils # 0.4 K/mcL (0.0-0.6); Lymphocytes # 2.1 K/mcL (0.6-4.6); Monocytes # 2.1 K/mcL (0.0-1.3); Neutrophils # 5.8 K/mcL (1.6-8.9); Platelet Estimate Normal (Normal); Reactive Lymphocytes Present (Not Present)
[2016-12-08] MEDS: *HR* Enoxaparin 30 MG/0.3 ML SYRINGE SQ SCH ×2 (06:06→18:49)
[2016-12-08] MEDS: Acetaminophen 325 MG TABLET PO PRN (06:21)
[2016-12-08] MEDS: Vancomycin 1,750 MG in D5% in Water 500 ML IVPB SCH ×2 (09:58→19:52)
--- NOTE | 2016-12-08 14:18 | Internal Med Progress Note ---
Date of Encounter: 12/08/16 Time of Encounter: 11:00 - Assessment and plan (1) Sepsis affecting skin Current Visit: Yes Status: Acute Assessment and plan: Sepsis secondary to left leg cellulitis. CT of the left leg showed extensive circumferential soft tissue edema and skin thickening. No abscess. Blood cultures are negative so far. Slowly improving. Continue IV vancomycin. Given extensive cellulitis, patient may need IV antibiotics at home. (2) Cellulitis Current Visit: No Status: Acute Assessment and plan: left leg cellulitis. Plan as above. Qualifiers: Site of cellulitis: extremity Site of cellulitis of extremity: lower extremity Laterality: left Qualified Code(s): L03.116 - Cellulitis of left lower limb (3) Hypertension Current Visit: No Status: Acute Assessment and plan: Blood pressure is adequate. Qualifiers: Hypertension type: essential hypertension Qualified Code(s): I10 - Essential (primary) hypertension - Subjective Interval history: Pain in left leg is better compared to admission. Swelling in leg is unchanged. - Constitutional Vitals: Temp Pulse Resp BP Pulse Ox 97.5 F L 67 16 154/77 95 12/08/16 12:43 12/08/16 12:43 12/08/16 12:43 12/08/16 12:43 12/08/16 12:43 General appearance: Present: cooperative, mild distress, A&O X 3, morbidly obese , answers questions appropriately - Neck Neck exam general surgery: Present: supple, trachea midline. Absent: lymphadenopathy - Respiratory Respiratory exam: Present: CTAB - Cardiovascular Cardiovascular exam: Present: RRR - GI/Abdominal GI/Abdominal exam: Present: normal bowel sounds, soft. Absent: distended, tenderness - Back Exam Back exam: Absent: CVA tenderness (L), CVA tenderness (R) - Neurological Exam Neurological exam: Present: alert, oriented X3, no focal deficits, strengths equal and symetr throughout. Absent: facial droop, speech deficit - Skin Skin exam: Present: rash (Left leg is significantly swollen with erythema and multiple blisters. there is a blue jonnathan still surrounding cellulitis changes. ) Internal Medicine: Result - Labs CBC & Chem 7: 12/08/16 02:18 12/08/16 02:18 Labs: Short CBC 12/08/16 Range/Units 02:18 WBC 10.3 (4.3-11.1) K/mcL Hgb 11.5 L (12.9-16.9) g/dL Hct 35.1 L (37.5-50.1) % Plt Count 305 (140-400) K/mcL Neutrophils # 5.8 (1.6-8.9) K/mcL BMP 12/08/16 02:18 Sodium 138 Potassium 3.8 Chloride 100 Carbon Dioxide 31 H BUN 13 Creatinine 0.71 L Glucose 107 H Calcium 8.8 - ABG Interpretation ABG results: PT/INR, D-dimer PT 12.4 Seconds (9.4-12.1) H 12/05/16 17:12 Consult Discharge Plan - Plan Referrals: NO,PCP [Non-Partnered Physician] -
[2016-12-09] MEDS: 0.9 % Sodium Chloride 1,000 ML IVC SCH (00:40)
[2016-12-09] MEDS: Acyclovir 200 MG CAPSULE PO SCH ×2 (00:40→09:43)
[2016-12-09] MEDS: *HR* OxyCODONE Immed Rel 5 MG TABLET PO PRN ×2 (02:55→11:19)
[2016-12-09 03:38] LABS: Eosinophils # 0.2 K/mcL (0.0-0.6); Hematocrit 38.5 % (37.5-50.1); Hemoglobin 12.3 g/dL (12.9-16.9); Mean Corpuscular HGB Conc 31.9 g/dL (31.6-35.5); Mean Corpuscular Volume 90.8 fL (83.0-100.0); Mean Platelet Volume 10.1 fL (9.4-12.4); Nucleated Red Blood Cells 0.4 /100 WBC (0); Platelet Count 358 K/mcL (140-400); Red Blood Count 4.24 M/mcL (4.19-5.50)
[2016-12-09 03:50] LABS: BUN/Creatinine Ratio 17 (6-26); Blood Urea Nitrogen 13 mg/dL (8-26); Carbon Dioxide 27 mEq/L (19-29); Chloride 101 mEq/L (98-109); Glucose 98 mg/dL (70-99); Osmolality,Calculated 286 (280-300); Sodium 138 mEq/L (136-145); eGFR For African Americans > 60 (> 60); eGFR For Non-African Americans > 60 (> 60)
[2016-12-09 03:53] LABS: Potassium 5.1 mEq/L (3.5-4.5)
[2016-12-09 04:02] LABS: Lymphocytes # 2.6 K/mcL (0.6-4.6); Monocytes # 1.7 K/mcL (0.0-1.3); Neutrophils # 6.2 K/mcL (1.6-8.9); Platelet Estimate Normal (Normal)
[2016-12-09] MEDS: *HR* HYDROmorphone (PF) 1 MG/ML SYRINGE IVP PRN ×5 (04:10→22:56)
[2016-12-09] MEDS: *HR* Enoxaparin 30 MG/0.3 ML SYRINGE SQ SCH ×2 (06:26→18:13)
[2016-12-09 09:07] LABS: Vancomycin,Trough 9.6 mcg/mL (10-20)
[2016-12-09] MEDS: Vancomycin 1,750 MG in D5% in Water 500 ML IVPB SCH ×3 (09:34→22:57)
--- NOTE | 2016-12-09 10:55 | Internal Med Progress Note ---
Date of Encounter: 12/09/16 Time of Encounter: 10:45 - Assessment and plan (1) Sepsis affecting skin Current Visit: Yes Status: Acute Assessment and plan: Sepsis secondary to left leg cellulitis. CT of the left leg showed extensive circumferential soft tissue edema and skin thickening. No abscess. Blood cultures are negative so far. Continue IV vancomycin. No significant improvement. Add IV ceftriaxone and IV lasix. Given extensive cellulitis, patient may need IV antibiotics at home. (2) Cellulitis Current Visit: No Status: Acute Assessment and plan: left leg cellulitis. Plan as above. Qualifiers: Site of cellulitis: extremity Site of cellulitis of extremity: lower extremity Laterality: left Qualified Code(s): L03.116 - Cellulitis of left lower limb (3) Hypertension Current Visit: No Status: Acute Assessment and plan: Blood pressure is elevated. start amlodipine and lasix. Qualifiers: Hypertension type: essential hypertension Qualified Code(s): I10 - Essential (primary) hypertension - Subjective Interval history: Patient complains of leg pain that is good controlled with medications. Patient is worried that swelling and cellulitis in left leg is not improving as fast as in previous cellulitis; however, he admits that this time his infection is worse than before. - Constitutional Vitals: Temp Pulse Resp BP Pulse Ox 98.1 F 63 20 146/77 93 12/09/16 06:36 12/09/16 06:36 12/09/16 06:36 12/09/16 06:36 12/09/16 06:36 General appearance: Present: cooperative, mild distress, A&O X 3, morbidly obese , answers questions appropriately - Respiratory Respiratory exam: Present: CTAB - Cardiovascular Cardiovascular exam: Present: RRR - GI/Abdominal GI/Abdominal exam: Present: normal bowel sounds, soft. Absent: distended, tenderness - Neurological Exam Neurological exam: Present: alert, oriented X3, no focal deficits, strengths equal and symetr throughout. Absent: facial droop, speech deficit - Skin Skin exam: Present: rash (Left leg is significantly swollen with fading erythema and multiple blisters. there is a blue jonnathan surrounding cellulitis) Internal Medicine: Result - Labs CBC & Chem 7: 12/09/16 03:18 12/09/16 03:18 Labs: Short CBC 12/09/16 Range/Units 03:18 WBC 10.7 (4.3-11.1) K/mcL Hgb 12.3 L (12.9-16.9) g/dL Hct 38.5 (37.5-50.1) % Plt Count 358 (140-400) K/mcL Neutrophils # 6.2 (1.6-8.9) K/mcL BMP 12/09/16 03:18 Sodium 138 Potassium 5.1 H D Chloride 101 Carbon Dioxide 27 BUN 13 Creatinine 0.75 Glucose 98 Calcium 9.0 - ABG Interpretation ABG results: PT/INR, D-dimer PT 12.4 Seconds (9.4-12.1) H 12/05/16 17:12 Consult Discharge Plan - Plan Referrals: NO,PCP [Non-Partnered Physician] -
[2016-12-09] MEDS: amLODIPine 5 MG TABLET PO SCH (11:19)
[2016-12-09] MEDS: Furosemide 40 MG/4 ML VIAL IVP SCH ×2 (11:21→18:13)
[2016-12-09] MEDS ORDERED: Ipratropium/Albuterol Neb 3 ML IH ONE (12:00)
[2016-12-10 03:41] LABS: Eosinophils # 0.3 K/mcL (0.0-0.6); Hematocrit 39.5 % (37.5-50.1); Hemoglobin 12.8 g/dL (12.9-16.9); Mean Corpuscular HGB Conc 32.4 g/dL (31.6-35.5); Mean Corpuscular Hemoglobin 28.9 pg (28.0-33.3); Mean Corpuscular Volume 89.2 fL (83.0-100.0); Mean Platelet Volume 9.6 fL (9.4-12.4); Nucleated Red Blood Cells 0.2 /100 WBC (0); Platelet Count 426 K/mcL (140-400); Red Blood Count 4.43 M/mcL (4.19-5.50); Red Cell Distribution Width 13.8 % (11.5-14.5)
[2016-12-10 04:27] LABS: Lymphocytes # 4.4 K/mcL (0.6-4.6); Monocytes # 0.3 K/mcL (0.0-1.3); Neutrophils # 7.3 K/mcL (1.6-8.9)
[2016-12-10 04:28] LABS: Polychromasia 1+ (Not Present)
[2016-12-10] MEDS: *HR* HYDROmorphone (PF) 1 MG/ML SYRINGE IVP PRN ×5 (04:30→22:20)
[2016-12-10 05:13] LABS: BUN/Creatinine Ratio 14 (6-26); Blood Urea Nitrogen 11 mg/dL (8-26); Calcium 8.9 mg/dL (8.6-10.8); Carbon Dioxide 34 mEq/L (19-29); Chloride 95 mEq/L (98-109); Glucose 111 mg/dL (70-99); Osmolality,Calculated 284 (280-300); Potassium 3.8 mEq/L (3.5-4.5); Sodium 137 mEq/L (136-145); eGFR For African Americans > 60 (> 60); eGFR For Non-African Americans > 60 (> 60)
[2016-12-10] MEDS: *HR* Enoxaparin 30 MG/0.3 ML SYRINGE SQ SCH ×2 (05:41→18:15)
[2016-12-10] MEDS: Acetaminophen 325 MG TABLET PO PRN (05:51)
[2016-12-10] MEDS: amLODIPine 5 MG TABLET PO SCH (07:54)
[2016-12-10] MEDS: Furosemide 40 MG/4 ML VIAL IVP SCH (07:55)
[2016-12-10] MEDS: Vancomycin 1,750 MG in D5% in Water 500 ML IVPB SCH ×2 (10:34→23:09)
--- NOTE | 2016-12-10 15:45 | Internal Med Progress Note ---
Date of Encounter: 12/10/16 Time of Encounter: 08:45 - Assessment and plan (1) Sepsis affecting skin Current Visit: Yes Status: Acute Assessment and plan: Sepsis secondary to left leg cellulitis. CT of the left leg showed extensive circumferential soft tissue edema and skin thickening. No abscess. LE Venous doppler was negative. Blood cultures are negative so far. Continue IV vancomycin and Iv ceftriaxone. Minimal improvement every day. Given extensive cellulitis, patient may need IV antibiotics at home. (2) Cellulitis Current Visit: No Status: Acute Assessment and plan: left leg cellulitis. Plan as above. Qualifiers: Site of cellulitis: extremity Site of cellulitis of extremity: lower extremity Laterality: left Qualified Code(s): L03.116 - Cellulitis of left lower limb (3) Hypertension Current Visit: No Status: Acute Assessment and plan: 12/09 received amlodipine and lasix. continue amlodipine and lasix. Blood pressure is adequate. Qualifiers: Hypertension type: essential hypertension Qualified Code(s): I10 - Essential (primary) hypertension (4) Heart failure Current Visit: Yes Status: Acute Assessment and plan: suspected diastolic/right heart failure. bilateral LE edema echocardiogram ordered. continue Lasix daily. strict I/O. Qualifiers: Heart failure type: diastolic Heart failure chronicity: acute on chronic Qualified Code(s): I50.33 - Acute on chronic diastolic (congestive) heart failure (5) Morbid obesity with BMI of 50.0-59.9, adult Current Visit: Yes Status: Chronic Assessment and plan: bmi 50. - Subjective Interval history: His leg pain is controlled with medications. - Constitutional Vitals: Temp Pulse Resp BP Pulse Ox 97.9 F 60 17 112/78 94 12/10/16 15:00 12/10/16 15:00 12/10/16 15:00 12/10/16 11:42 12/10/16 15:00 General appearance: Present: cooperative, A&O X 3, morbidly obese, no acute distress, answers questions appropriately - Respiratory Respiratory exam: Present: CTAB - Cardiovascular Cardiovascular exam: Present: distant heart sounds, RRR - GI/Abdominal GI/Abdominal exam: Present: normal bowel sounds, soft. Absent: distended, tenderness - Neurological Exam Neurological exam: Present: alert, oriented X3, no focal deficits, strengths equal and symetr throughout. Absent: facial droop, speech deficit - Skin Skin exam: Present: rash (Left leg is significantly swollen with fading erythema and ruptured blisters. ) Internal Medicine: Result - Labs CBC & Chem 7: 12/10/16 03:32 12/10/16 04:16 Labs: Short CBC 12/10/16 Range/Units 03:32 WBC 13.0 H (4.3-11.1) K/mcL Hgb 12.8 L (12.9-16.9) g/dL Hct 39.5 (37.5-50.1) % Plt Count 426 H (140-400) K/mcL Neutrophils # 7.3 (1.6-8.9) K/mcL BMP 12/10/16 04:16 Sodium 137 Potassium 3.8 Chloride 95 L Carbon Dioxide 34 H BUN 11 Creatinine 0.77 Glucose 111 H Calcium 8.9 - ABG Interpretation ABG results: PT/INR, D-dimer PT 12.4 Seconds (9.4-12.1) H 12/05/16 17:12 Consult Discharge Plan - Plan Referrals: NO,PCP [Non-Partnered Physician] -
[2016-12-10 22:50] LABS: Bilirubin,Urine Negative (Negative); Blood,Urine Large (Negative); Clarity,Urine Clear (Clear); Color,Urine Yellow (Yellow); Glucose,Urine (UA) Normal (Normal); Ketones,Urine Negative (Negative); Leukocyte Esterase,Urine Negative (Negative); Nitrite,Urine Negative (Negative); Protein,Urine Trace mg/dL (Neg-Trace)
[2016-12-10 22:52] LABS: Bacteria,Urine None Seen per hpf (None-Few); Hyaline Casts,Urine None Seen per lpf (None-Few); RBC,Urine TNTC per hpf (0-3); Squamous Epithelial Cell,Urine Moderate per lpf (None-Few)
[2016-12-11] MEDS: *HR* HYDROmorphone (PF) 1 MG/ML SYRINGE IVP PRN ×5 (04:39→21:58)
[2016-12-11] MEDS: Acetaminophen 325 MG TABLET PO PRN ×2 (04:46→17:12)
[2016-12-11 05:11] LABS: Hematocrit 37.1 % (37.5-50.1); Mean Corpuscular HGB Conc 32.3 g/dL (31.6-35.5); Mean Corpuscular Hemoglobin 29.5 pg (28.0-33.3); Mean Corpuscular Volume 91.2 fL (83.0-100.0); Mean Platelet Volume 9.9 fL (9.4-12.4); Platelet Count 414 K/mcL (140-400); Red Blood Count 4.07 M/mcL (4.19-5.50); Red Cell Distribution Width 13.7 % (11.5-14.5)
[2016-12-11 05:29] LABS: BUN/Creatinine Ratio 17 (6-26); Blood Urea Nitrogen 13 mg/dL (8-26); Calcium 9.3 mg/dL (8.6-10.8); Carbon Dioxide 31 mEq/L (19-29); Chloride 97 mEq/L (98-109); Glucose 107 mg/dL (70-99); Osmolality,Calculated 285 (280-300); Potassium 4.1 mEq/L (3.5-4.5); Sodium 137 mEq/L (136-145); eGFR For African Americans > 60 (> 60); eGFR For Non-African Americans > 60 (> 60)
[2016-12-11 05:45] LABS: Basophils # 0.3 K/mcL (0.0-0.2); Eosinophils # 0.3 K/mcL (0.0-0.6); Lymphocytes # 2.3 K/mcL (0.6-4.6); Monocytes # 1.5 K/mcL (0.0-1.3); Neutrophils # 7.9 K/mcL (1.6-8.9)
[2016-12-11 05:46] LABS: Toxic Granulation Present (Not Present)
[2016-12-11] MEDS: *HR* Enoxaparin 30 MG/0.3 ML SYRINGE SQ SCH ×2 (05:59→16:33)
[2016-12-11] MEDS: amLODIPine 5 MG TABLET PO SCH (08:46)
[2016-12-11] MEDS: Vancomycin 1,750 MG in D5% in Water 500 ML IVPB SCH ×2 (11:09→22:55)
[2016-12-11] MEDS ORDERED: Perflutren Lipid Microsphere 1.3 ML in 0.9 % Sodium Chloride 8.7 ML IVP ONE (14:35)
[2016-12-11] MEDS ORDERED: 0.9 % Sodium Chloride 1,000 ML IVC SCH (15:45)
--- NOTE | 2016-12-11 16:01 | Internal Med Progress Note ---
<Shalom Franco - Last Filed: 12/11/16 15:58> Date of Encounter: 12/11/16 Time of Encounter: 15:59 - Assessment and plan (1) Sepsis Current Visit: No Status: Acute Assessment and plan: Patient No longer meets SIRS or QSOFa criteria. WBC trending down. Clinically improving some but not as quickly as expected. Rocephin was added yesterday. Will continue Continue Vancomycin. We will get a CT of the LE w/ contrast to r/o abscess Qualifiers: Sepsis type: sepsis due to unspecified organism Qualified Code(s): A41.9 - Sepsis, unspecified organism (2) Cellulitis and abscess of leg Current Visit: No Status: Acute Assessment and plan: as stated above (3) Morbid obesity with BMI of 50.0-59.9, adult Current Visit: Yes Status: Chronic Assessment and plan: advise weight loss (4) Leukocytosis Current Visit: No Status: Acute Assessment and plan: trending down. (5) Hypertension Current Visit: No Status: Acute Assessment and plan: resolved Qualifiers: Hypertension type: essential hypertension Qualified Code(s): I10 - Essential (primary) hypertension (6) DVT prophylaxis Current Visit: Yes Status: Acute Assessment and plan: On Lovenox. - Subjective Interval history: No major events overnight. Patient complains of continued swelling in the left lower extremity. He deneis fever, chills, malaise, abdominal pain, N/v/d. He denies any pain or discomfort. He has no further complaints or concerns at this time. - Constitutional Vitals: Temp Pulse Resp BP Pulse Ox 98.6 F 85 20 131/70 95 12/11/16 10:00 12/11/16 10:00 12/11/16 10:00 12/11/16 10:00 12/11/16 10:00 General appearance: Present: cooperative, A&O X 3, morbidly obese, no acute distress, answers questions appropriately - Head Head exam: Present: atraumatic, normocephalic - Eye Eye exam: Present: PERRL, conjuntiva pink, sclera anicteric Pupils: Present: PERRL - Neck Neck exam general surgery: Present: supple, trachea midline. Absent: lymphadenopathy - Respiratory Respiratory exam: Present: CTAB. Absent: accessory muscle use, rales, rhonchi, wheezes - Cardiovascular Cardiovascular exam: Present: RRR, +S1, +S2. Absent: diastolic murmur, gallop, rubs, systolic murmur - GI/Abdominal GI/Abdominal exam: Present: normal bowel sounds, soft, no peritoneal signs. Absent: distended, tenderness - Extremities Exam Extremities exam: Present: pedal edema (Left), warm, radial pulses palpable and symetrical. Absent: calf tenderness, cyanotic Additional comments: The left leg is quite edmatous and erythematous. There is some resceding of the erythema below the jonnathan on the leg. there is desquarmation of the skin on the anterior aspect. Internal Medicine: Result - Labs CBC & Chem 7: 12/11/16 04:02 12/11/16 04:02 Labs: Short CBC 12/11/16 Range/Units 04:02 WBC 12.8 H (4.3-11.1) K/mcL Hgb 12.0 L (12.9-16.9) g/dL Hct 37.1 L (37.5-50.1) % Plt Count 414 H (140-400) K/mcL Neutrophils # 7.9 (1.6-8.9) K/mcL BMP 12/11/16 04:02 Sodium 137 Potassium 4.1 Chloride 97 L Carbon Dioxide 31 H BUN 13 Creatinine 0.77 Glucose 107 H Calcium 9.3 Urine 12/10/16 Range/Units 22:30 Urine Color Yellow (Yellow) Urine Clarity Clear (Clear) Urine pH 7.0 (5.0-8.0) pH Units Ur Specific [place] 1.020 (1.010-1.025) Urine Protein Trace (Neg-Trace) mg/dL Urine Glucose (UA) Normal (Normal) mg/dL - ABG Interpretation ABG results: PT/INR, D-dimer PT 12.4 Seconds (9.4-12.1) H 12/05/16 17:12 Consult Discharge Plan - Plan Referrals: NO,PCP [Non-Partnered Physician] - <Sarah Ren - Last Filed: 12/11/16 18:31> Date of Encounter: 12/11/16 - Assessment and plan (1) Sepsis affecting skin Current Visit: Yes Status: Acute (2) Cellulitis Current Visit: No Status: Acute Qualifiers: Site of cellulitis: extremity Site of cellulitis of extremity: lower extremity Laterality: left Qualified Code(s): L03.116 - Cellulitis of left lower limb (3) Hypertension Current Visit: No Status: Acute Qualifiers: Hypertension type: essential hypertension Qualified Code(s): I10 - Essential (primary) hypertension (4) Heart failure Current Visit: Yes Status: Acute Qualifiers: Heart failure type: diastolic Heart failure chronicity: acute on chronic Qualified Code(s): I50.33 - Acute on chronic diastolic (congestive) heart failure (5) Morbid obesity with BMI of 50.0-59.9, adult Current Visit: Yes Status: Chronic - Constitutional Vitals: Temp Pulse Resp BP Pulse Ox 98.6 F 63 16 145/72 96 12/11/16 16:18 12/11/16 16:18 12/11/16 16:18 12/11/16 16:18 12/11/16 16:18 Internal Medicine: Result - Labs CBC & Chem 7: 12/11/16 04:02 12/11/16 04:02 Labs: Short CBC 12/11/16 Range/Units 04:02 WBC 12.8 H (4.3-11.1) K/mcL Hgb 12.0 L (12.9-16.9) g/dL Hct 37.1 L (37.5-50.1) % Plt Count 414 H (140-400) K/mcL Neutrophils # 7.9 (1.6-8.9) K/mcL BMP 12/11/16 04:02 Sodium 137 Potassium 4.1 Chloride 97 L Carbon Dioxide 31 H BUN 13 Creatinine 0.77 Glucose 107 H Calcium 9.3 Urine 12/10/16 Range/Units 22:30 Urine Color Yellow (Yellow) Urine Clarity Clear (Clear) Urine pH 7.0 (5.0-8.0) pH Units Ur Specific [place] 1.020 (1.010-1.025) Urine Protein Trace (Neg-Trace) mg/dL Urine Glucose (UA) Normal (Normal) mg/dL - ABG Interpretation ABG results: PT/INR, D-dimer PT 12.4 Seconds (9.4-12.1) H 12/05/16 17:12 - Impressions Impressions Lower Extremity CT 12/11/16 15:49 IMPRESSION: 1. Re- demonstration of pronounced subcutaneous edema and diffuse skin thickening of the left lower extremity. Findings are nonspecific and clinical correlation for cellulitis recommended. No organized drainable fluid collection identified to suggest abscess. 2. Osteoarthritis involving the left knee and foot as described above. D/ / Ferny Llamas MD / Ferny Llamas MD Interpreting Provider: Ferny Llamas MD Abdomen/Pelvis CT 12/11/16 16:13 IMPRESSION: 1. No acute abdominopelvic abnormality. 2. Small uncomplicated fat containing umbilical and right inguinal hernias. D/ / Chai Murrell MD / Chai Murrell MD Interpreting Provider: Chai Murrell MD - Attending Attestation I examined this patient and reviewed laboratory, imaging and all diagnostic data. My medical decision-making was reviewed with Dr Franco - Resident Physician. I agree with the documented findings, disposition and treatment plan as described above
--- NOTE | 2016-12-11 16:34 | ECHO - Doppler Report ---
Echo with Imaging Enhancement Agent Name: Epifanio Hi Date of Study: 12/11/2016 Date: 1960 Ht: 71.0 in Medical Record#: [id number] Age: 56 Wt: 365.0 lb Gender: Male BSA: 2.72 Order #: [id number] Location: [facility] Room #: [facility] Reading Physician: Sheldon Lagos DO, [facility] Policeman: SAMANTHA GutierrezT Ordering Physician: Sarah Ren MD Primary Physician: Ramos Mora DO Indications: lower extremity edema Impressions: LVEF 60%. Mildly dilated left ventricle. Moderate left ventricular diastolic dysfunction. Right ventricle was not well visualized in most views. Grossly, it appears mildly dilated with normal function. Unable to accurately estimate RVSP due to lack of adequate TR jet. Valves were not well visualized. No obvious abnormalities were noted. Left Ventricular Wall Motion: Rest Echo Findings All wall segments showed normal motion. Findings: Study Quality * Technically sub-optimal due to body habitus. ECG Findings * Normal sinus rhythm. Left Ventricle * LVEF 60%. * Normal LV wall thickness and function. * Mildly dilated left ventricle. * Moderate left ventricular diastolic dysfunction. Right Ventricle * Right ventricle was not well visualized in most views. Grossly, it appears mildly dilated with normal function. Left Atrium * Grossly, LA appears at least moderately dilated. Right Atrium * Grossly, RA appears at least moderately dilated. Interatrial Septum * Interatrial septum not well evaluated. Aortic Valve * Aortic valve not well visualized. * No aortic stenosis. * No aortic regurgitation. Mitral Valve * Mitral valve not well visualized. * No mitral stenosis. * No mitral regurgitation. Tricuspid Valve * Tricuspid valve not well visualized. * Trace tricuspid regurgitation. * Unable to accurately estimate RVSP due to lack of adequate TR jet. Pulmonic Valve * Pulmonic valve not well visualized. Aorta * Normally sized aortic root. Pericardium * The pericardium appears normal. IVC * Normal IVC dimensions and inspiratory collapse. Pulmonary Artery * Pulmonary artery not well visualized. History Rheumatic Fever Contrast: Definity 1.3 ml in 8.7 ml of saline 2 ml. Measurements: BP: 147/ 76 2D Normal Values RVIDd: 2.60 cm <2.7 cm IVSd: 1.10 cm 0.6 - 1.0 cm LVIDd: 5.70 cm 3.7 - 5.6 cm LVPWd: 1.10 cm 0.6 - 1.1 cm LVIDs: 4.50 cm 1.5 - 3.6 cm AO: 2.80 cm < 4.0 cm LA: 4.50 cm 2.0 - 4.0cm %FS: 29.70 cm >25 % LA volume: 89 Mitral Valve Peak E:1.53 m/sec Peak E' Lat Pedro:13.8 cm/s Peak E' Med Pedro:10.8 cm/s E/E' Lat Ratio:11.1 E/E' Med Ratio:14.2 Tricuspid Valve TV Regurg Peak Grad: 9.00mmHg TV Regurg Peak Pedro: 1.47m/sec Updated by Sheldon Lagos DO, KATTY, ALAN, KATH on 12/11/2016 4:26:41 PM electronically signed on 12/11/2016 4:27:42 PM with status of Final Wall Motion Carvalho: 1=Normal, 2=Hypokinesis, 3=Akinesis, 4=Dyskinesis, 5=Aneurysmal, 6=Hyperkinetic, X=Not Visualized (Blank)=Missing
[2016-12-12] MEDS: Piperacillin/Tazobactam 3.375 GM in D5% in Water (Mini-Bag+) 100 ML IVPB SCH ×4 (00:51→23:28)
[2016-12-12] MEDS: *HR* HYDROmorphone (PF) 1 MG/ML SYRINGE IVP PRN ×4 (02:09→21:23)
[2016-12-12] MEDS: *HR* Enoxaparin 30 MG/0.3 ML SYRINGE SQ SCH ×2 (06:17→16:08)
[2016-12-12 06:25] LABS: Basophils % 0.3 %; Eosinophils # 0.2 K/mcL (0.0-0.6); Eosinophils % 1.6 %; Hematocrit 37.3 % (37.5-50.1); Hemoglobin 12.1 g/dL (12.9-16.9); Immature Granulocytes % 6.8 % (0-4); Lymphocytes # 2.1 K/mcL (0.6-4.6); Lymphocytes % 16.3 %; Mean Corpuscular HGB Conc 32.4 g/dL (31.6-35.5); Mean Corpuscular Hemoglobin 29.7 pg (28.0-33.3); Mean Corpuscular Volume 91.4 fL (83.0-100.0); Monocytes # 1.4 K/mcL (0.0-1.3); Monocytes % 10.7 %; Neutrophils # 8.3 K/mcL (1.6-8.9); Platelet Count 405 K/mcL (140-400); Red Blood Count 4.08 M/mcL (4.19-5.50); Red Cell Distribution Width 13.8 % (11.5-14.5); Segmented Neutrophils % 64.3 %
[2016-12-12 06:41] LABS: BUN/Creatinine Ratio 16 (6-26); Blood Urea Nitrogen 13 mg/dL (8-26); Calcium 9.1 mg/dL (8.6-10.8); Carbon Dioxide 30 mEq/L (19-29); Chloride 100 mEq/L (98-109); Glucose 94 mg/dL (70-99); Osmolality,Calculated 286 (280-300); Potassium 4.5 mEq/L (3.5-4.5); Sodium 138 mEq/L (136-145); eGFR For African Americans > 60 (> 60); eGFR For Non-African Americans > 60 (> 60)
[2016-12-12] MEDS: amLODIPine 5 MG TABLET PO SCH (08:19)
[2016-12-12] MEDS: *HR* OxyCODONE Immed Rel 5 MG TABLET PO PRN (11:18)
[2016-12-12] MEDS: Vancomycin 1,750 MG in D5% in Water 500 ML IVPB SCH ×2 (11:55→23:27)
[2016-12-12] MEDS: Furosemide 40 MG TABLET PO SCH ×2 (13:12→16:08)
--- NOTE | 2016-12-12 13:32 | Internal Med Progress Note ---
<Shalom Franco - Last Filed: 12/12/16 15:02> Date of Encounter: 12/12/16 Time of Encounter: 13:30 - Assessment and plan (1) Sepsis Current Visit: No Status: Acute Assessment and plan: Patient No longer meets SIRS or QSOFa criteria. WBC trending up slightly. Clinically ileg appears imilar to yesterdays exam. Zosyn was added yesterday and Rocephin was DC's Will continue Continue Vancomycin. CT of the leg revealed persistent cellulitis. No abscess. CT abdomen was unremarkable. We had planned to check a vancomycin peak as he is morbidly obese. However this was canceled by pharmacy. Trough is beter on todays lab 18. Will need to continue to monitor. WE may consider switching to Linezolid as this is quite good for soft tissue infections. However given the slow improvements of his leg we will consult ID for there input. Appears to be infectious. However if dose not continue to improve may consider vasculitis? Qualifiers: Sepsis type: sepsis due to unspecified organism Qualified Code(s): A41.9 - Sepsis, unspecified organism (2) Cellulitis and abscess of leg Current Visit: No Status: Acute Assessment and plan: as stated above (3) Morbid obesity with BMI of 50.0-59.9, adult Current Visit: Yes Status: Chronic Assessment and plan: advise weight loss (4) Leukocytosis Current Visit: No Status: Acute Assessment and plan: mild trend up . Qualifiers: Qualified Code(s): D72.829 - Elevated white blood cell count, unspecified (5) Hypertension Current Visit: No Status: Acute Assessment and plan: continue amlodipine. Qualifiers: Hypertension type: essential hypertension Qualified Code(s): I10 - Essential (primary) hypertension (6) DVT prophylaxis Current Visit: Yes Status: Acute Assessment and plan: On Lovenox. - Subjective Interval history: No major event overnight Patient states he had some pain in his left leg this AM but it is now well controlled. He denies any chest pain, dyspnea, cough, wheeze, Abdominal pain, N/V/D. - Constitutional Vitals: Temp Pulse Resp BP Pulse Ox 98.5 F 66 16 149/67 95 12/12/16 10:55 12/12/16 10:55 12/12/16 10:55 12/12/16 10:55 12/12/16 10:55 General appearance: Present: cooperative, A&O X 3, morbidly obese, no acute distress, answers questions appropriately - Head Head exam: Present: atraumatic, normocephalic - Eye Eye exam: Present: PERRL, conjuntiva pink, sclera anicteric Pupils: Present: PERRL - Neck Neck exam general surgery: Present: supple, trachea midline. Absent: lymphadenopathy - Respiratory Respiratory exam: Present: CTAB. Absent: accessory muscle use, rales, rhonchi, wheezes - Cardiovascular Cardiovascular exam: Present: RRR, +S1, +S2. Absent: diastolic murmur, gallop, rubs, systolic murmur - GI/Abdominal GI/Abdominal exam: Present: normal bowel sounds, soft, no peritoneal signs. Absent: distended, tenderness - Extremities Exam Extremities exam: Present: warm, radial pulses palpable and symetrical. Absent : calf tenderness, cyanotic, pedal edema Additional comments: The left lower extremity is still erythematous and erythematous with desquarmation of the anterior skin with serosanquinous weeping. Not much change since yesterdays exam.. Internal Medicine: Result - Labs CBC & Chem 7: 12/12/16 05:19 12/12/16 05:19 Labs: Short CBC 12/12/16 Range/Units 05:19 WBC 12.9 H (4.3-11.1) K/mcL Hgb 12.1 L (12.9-16.9) g/dL Hct 37.3 L (37.5-50.1) % Plt Count 405 H (140-400) K/mcL Neutrophils # 8.3 (1.6-8.9) K/mcL BMP 12/12/16 05:19 Sodium 138 Potassium 4.5 Chloride 100 Carbon Dioxide 30 H BUN 13 Creatinine 0.79 Glucose 94 Calcium 9.1 - ABG Interpretation ABG results: PT/INR, D-dimer PT 12.4 Seconds (9.4-12.1) H 12/05/16 17:12 - Impressions Impressions Lower Extremity CT 12/11/16 15:49 IMPRESSION: 1. Re- demonstration of pronounced subcutaneous edema and diffuse skin thickening of the left lower extremity. Findings are nonspecific and clinical correlation for cellulitis recommended. No organized drainable fluid collection identified to suggest abscess. 2. Osteoarthritis involving the left knee and foot as described above. D/ / Ferny Llamas MD / Ferny Llamas MD Interpreting Provider: Ferny Llamas MD Abdomen/Pelvis CT 12/11/16 16:13 IMPRESSION: 1. No acute abdominopelvic abnormality. 2. Small uncomplicated fat containing umbilical and right inguinal hernias. D/ / Chai Murrell MD / Chai Murrell MD Interpreting Provider: Chai Murrell MD Consult Discharge Plan - Plan Referrals: NO,PCP [Non-Partnered Physician] - <GelaSarah E - Last Filed: 12/12/16 16:21> Date of Encounter: 12/12/16 - Assessment and plan (1) Sepsis affecting skin Current Visit: Yes Status: Acute (2) Cellulitis Current Visit: No Status: Acute Qualifiers: Site of cellulitis: extremity Site of cellulitis of extremity: lower extremity Laterality: left Qualified Code(s): L03.116 - Cellulitis of left lower limb (3) Hypertension Current Visit: No Status: Acute Qualifiers: Hypertension type: essential hypertension Qualified Code(s): I10 - Essential (primary) hypertension (4) Heart failure Current Visit: Yes Status: Acute Qualifiers: Heart failure type: diastolic Heart failure chronicity: acute on chronic Qualified Code(s): I50.33 - Acute on chronic diastolic (congestive) heart failure (5) Morbid obesity with BMI of 50.0-59.9, adult Current Visit: Yes Status: Chronic - Constitutional Vitals: Temp Pulse Resp BP Pulse Ox 98.5 F 66 16 149/67 95 12/12/16 10:55 12/12/16 10:55 12/12/16 10:55 12/12/16 10:55 12/12/16 10:55 Internal Medicine: Result - Labs CBC & Chem 7: 12/12/16 05:19 12/12/16 05:19 Labs: Short CBC 12/12/16 Range/Units 05:19 WBC 12.9 H (4.3-11.1) K/mcL Hgb 12.1 L (12.9-16.9) g/dL Hct 37.3 L (37.5-50.1) % Plt Count 405 H (140-400) K/mcL Neutrophils # 8.3 (1.6-8.9) K/mcL BMP 12/12/16 05:19 Sodium 138 Potassium 4.5 Chloride 100 Carbon Dioxide 30 H BUN 13 Creatinine 0.79 Glucose 94 Calcium 9.1 - ABG Interpretation ABG results: PT/INR, D-dimer PT 12.4 Seconds (9.4-12.1) H 12/05/16 17:12 - Impressions Impressions Lower Extremity CT 12/11/16 15:49 IMPRESSION: 1. Re- demonstration of pronounced subcutaneous edema and diffuse skin thickening of the left lower extremity. Findings are nonspecific and clinical correlation for cellulitis recommended. No organized drainable fluid collection identified to suggest abscess. 2. Osteoarthritis involving the left knee and foot as described above. D/ / Ferny Llamas MD / Ferny Llamas MD Interpreting Provider: Ferny Llamas MD Abdomen/Pelvis CT 12/11/16 16:13 IMPRESSION: 1. No acute abdominopelvic abnormality. 2. Small uncomplicated fat containing umbilical and right inguinal hernias. D/ / Chai Murrell MD / Chai Murrell MD Interpreting Provider: Chai Murrell MD - Attending Attestation I examined this patient and reviewed laboratory, imaging and all diagnostic data. My medical decision-making was reviewed with Dr Franco - Resident Physician. I agree with the documented findings, disposition and treatment plan as described above
[2016-12-12 15:20] LABS: Lactate Dehydrogenase 419 Units/L (159-327)
[2016-12-12 16:20] LABS: C-Reactive Protein 66 mg/L (Less than 5)
[2016-12-13 05:39] LABS: Hematocrit 39.8 % (37.5-50.1); Hemoglobin 12.9 g/dL (12.9-16.9); Mean Corpuscular HGB Conc 32.4 g/dL (31.6-35.5); Mean Corpuscular Hemoglobin 29.7 pg (28.0-33.3); Mean Corpuscular Volume 91.7 fL (83.0-100.0); Mean Platelet Volume 10.1 fL (9.4-12.4); Platelet Count 414 K/mcL (140-400); Red Blood Count 4.34 M/mcL (4.19-5.50); Red Cell Distribution Width 13.6 % (11.5-14.5)
[2016-12-13] MEDS: *HR* Enoxaparin 30 MG/0.3 ML SYRINGE SQ SCH ×2 (05:53→17:11)
[2016-12-13 06:32] LABS: Lymphocytes # 3.2 K/mcL (0.6-4.6); Monocytes # 0.8 K/mcL (0.0-1.3); Neutrophils # 9.3 K/mcL (1.6-8.9)
[2016-12-13] MEDS: amLODIPine 5 MG TABLET PO SCH (08:09)
[2016-12-13] MEDS: Piperacillin/Tazobactam 3.375 GM in D5% in Water (Mini-Bag+) 100 ML IVPB SCH ×2 (08:10→15:35)
[2016-12-13] MEDS: Furosemide 40 MG TABLET PO SCH ×2 (08:10→17:11)
[2016-12-13] MEDS ORDERED: Fluconazole 100 MG/50 ML 100 MG/50 ML BAG IVPB SCH (09:30)
[2016-12-13] MEDS: *HR* HYDROmorphone (PF) 1 MG/ML SYRINGE IVP PRN ×3 (10:23→22:42)
[2016-12-13] MEDS: Vancomycin 1,750 MG in D5% in Water 500 ML IVPB SCH (11:23)
[2016-12-13] MEDS: *HR* HYDROcodone/Acet 10/325 mg TABLET PO PRN ×2 (11:53→17:11)
--- NOTE | 2016-12-13 13:19 | Infectious Disease Consult ---
Date of Encounter: 12/13/16 Time of Encounter: 13:16 Assessment and Plan (1) Sepsis affecting skin Status: Acute Assessment and plan: The patient had fever and leukocytosis on admission. Likely secondary to cellulitis of the LLE. Improved. The patient has been afebrile. He continues to have leukocytosis. Blood cultures drawn 12/05/16 are negative x 2 sets. (2) Cellulitis Status: Acute Assessment and plan: Location: LLE. Causative organism unclear, high index of suspicion for gram negative causative organism. CT of the LLE completed 12/06/16 showed findings consistent with cellulitis. Repeat CT completed 12/11/16 due to lack of improvement of the patient's symptoms again showed findings consistent with cellulitis. No abscess, fluid collection, or foreign body were seen on either CT. The patient reports he has had one episode of cellulitis in the LLE every year for the past 5 years. Likely multifactorial --> morbid obesity + vascular insufficiency + chronic tinea pedis. ESR >130. CRP 66. DVT study negative. Continue aggressive wound care and compression dressings. Consider consulting the wound care team. The patient may benefit from the use of an UNNA boot. Patient advised to wear compression hose at all times once cellulitis has healed as venous insufficiency can lead to edema which can lead to microperforations in the skin that give normal skin meliton the opportunity to cause an infection. Additionally, once the infection is healed, the patient should apply a moisturizing cream at least once daily to the BLE. Appropriate treatment and prevention of further tinea pedis infections can also prevent further infections. Continue Vancomycin IV. Pharmacy to dose. Goal trough approximately 15. Continue Zosyn 3.375 grams IV Q8H. Duration of treatment depends on the clinical picture. Monitor renal function and dose-adjust antibiotics. Qualifiers: Site of cellulitis: extremity Site of cellulitis of extremity: lower extremity Laterality: left Qualified Code(s): L03.116 - Cellulitis of left lower limb (3) Tinea pedis Status: Acute Assessment and plan: Location: bilateral feet. Likely secondary to poor foot hygiene and the patient using public showers at truck stops and not wearing protective footwear. Fluconazole started by the primary team. Can likely either switch to PO or treat with topical agent like clotrimazole to minimize systemic effects. Discussed the importance of good foot hygiene with the patient, including washing tennis shoes, changing socks frequently, and replacing the insoles of shoes he has worn recently. We also discussed the importance of wearing protective footwear when using public showers. Qualifiers: Laterality: bilateral Qualified Code(s): B35.3 - Tinea pedis (4) Venous insufficiency Status: Chronic Assessment and plan: Likely contributing to the patient's recurrence of cellulitis. Recommend that the patient wear compression stockings to the BLE at all times once the cellulitis has resolved. (5) Morbid obesity with BMI of 50.0-59.9, adult Status: Chronic Assessment and plan: Discussed the importance of weight loss and its effect on the recurrence of cellulitis. Patient states he has lost 40lbs over the past few months by changing his diet. Infectious Disease HPI - Data of Consult Patient: known to practice within the last 3 years Consult date: 12/13/16 Requesting Physician: Sarah Ren Primary Care Provider: Anabella Mena CNP - Consult Narrative Reason for consult: LLE recurrent cellulitis History of present illness: Mr. Hi is a 56 year old male past medical history of hypertension, obesity, hyperlipidemia, obstructive sleep apnea, CHF, borderline type 2 diabetes, and venous insufficiency. The patient was admitted to the hospital December 05 for cellulitis of the left lower extremity. We are consulted December 13 for further evaluation and treatment recommendations regarding recurrent cellulitis of the left lower extremity. The patient's a 56-year-old male previously known to the infectious disease Department department as we have been consulted on this case during her prior hospitalization. The patient states that starting about 5 years ago he has had multiple episodes of recurrent left lower extremity cellulitis that started after he received a traumatic injury to the left leg. He states that 2 days prior to this admission he looked noticed sudden onset of swelling of the left lower extremity. He was in [place] and came back to [place] for further evaluation, which took him 2 days. By the time he got back here his leg was severely swollen, erythematous, and painful. Upon arrival, he was afebrile, but did develop a fever 100.4 later that evening. He was hemodynamically stable. Laboratory studies revealed a white blood cell count 12.9 thousand with 16% bands. Basic metabolic panel was essentially negative. Blood cultures were obtained 2 sets in the ER and were negative. The patient underwent a Doppler DVT study which was negative. CT of the left lower extremity without contrast that showed findings consistent with cellulitis. The patient continued to have erythema and edema and pain in the left lower extremity with minimal improvement despite being on IV vancomycin. IV Rocephin was added on December 09. Again, the patient had minimal improvement. CT scan was repeated with contrast on December 11 and again showed findings consistent with cellulitis, but did not show any drainable fluid collection or foreign body. IV Rocephin was discontinued and IV Zosyn was started in addition to the IV vancomycin. The patient's white blood cell count has been trending up over the past couple days it is up to 13,000 today. ESR is elevated at greater than 130. We've been asked to evaluate it further recommendations. During my exam today, the patient endorsed a history as stated above. He reports that the weekend prior to admission he had an upper respiratory infection with fevers and chills, but that states that the symptoms had subsided prior to the development of the left lower extremity cellulitis. He denies any fevers or chills or rigors. He denies any headache or neck pain. He denies any congestion, earache, or sore throat. He denies any chest pain, shortness of breath, or cough. He denies nausea, vomiting, diarrhea, constipation. He denies any abdominal pain and states that his appetite is okay. He denies pain elsewhere except for the left lower extremity. He states that the pain is burning is constant and is localized to the lower portion of the left lower extremity. He denies any recent traumatic injury. He denies any oral thrush. He states he is not diabetic. He does report athlete's foot to the interdigital spaces of the bilateral feet. The patient lives at home alone. He does not have any pets currently. He does not smoke, use drugs, or drink alcohol. The patient is a long-distance semi truck driver. CC: Sarah Ren Past Med Surg Social Fam HX - Past Medical History Attestation: Yes The following information was validated with the patient. Source: patient, old records reviewed, nursing notes reviewed Medical history: arthritis, cardiomyopathy, CHF, diabetes (History of impaired glucose tolerance but no definitive diagnosis of diabetes mellitus.), hyperlipidemia, hypertension, renal disease, venous stasis, other Psychiatric history: no psych history - Past Surgical History Surgical History: no surgical history - Social History Smoking Status: Former smoker Smokeless Tobacco Status: No Alcohol use: occasionally Drug use: none Occupational status: employed (class c truck driver) Current living situation: Home - Independent Activity Level: Independent ambulation Recent Out of Country Travel Within the Last 8 Weeks: No Exposure or Possible Exposure to Illness During Travel: No - Family History Mother Family Member Ethnicity: Non- Living Status: Cause of : Unknown Hx Family Cardiac Disorders: No Hx Family Respiratory Disorders: No Hx Family Cancer: No Hx Family GI Disorders: No Hx Family Endocrine Disorder: Yes (DM) Hx Family Neuromuscular Disorders: No Hx Family Neurologic Disorders: No Hx Family HEENT Disorders: No Hx Family Autoimmune Disorders: No Infectious Disease-CN:Meds Clotrimazole 1% CRM [Lotrimin 1%] 1 appl TP TID #1 tube 12/15/16 [Rx] Comp.stocking,Knee,Regular,Lrg [Relief Knee Open Toe] 1 each MC DAILY #7 each [Rx] Furosemide [Lasix] 40 mg PO DAILY #30 tablet 12/15/16 [Rx] HYDROcodone/Acet 10/325 mg [Sherborn 10-325 mg] 1 each PO Q8H PRN #14 tablet [Rx] Levofloxacin 500 mg PO DAILY #14 tablet 12/15/16 [Rx] Lisinopril [Zestril] 40 mg PO DAILY #30 tablet 12/15/16 [Rx] Sulfamethoxazole/Trimeth DS [Bactrim DS] 1 each PO BID #28 tablet 12/15/16 [Rx] Allergies No Known Allergies Allergy (Verified 03/26/15 05:28) All systems: reviewed and no additional remarkable complaints except as stated Exam - Constitutional Vitals: Temp Pulse Resp BP Pulse Ox 98.3 F 68 18 136/70 96 12/13/16 11:03 12/13/16 11:03 12/13/16 11:03 12/13/16 11:03 12/13/16 07:51 General appearance: cooperative, morbidly obese, no acute distress - Head Head exam: Present: atraumatic, normal inspection, normocephalic - Eye Eye exam: Present: EOMI, normal appearance, PERRL Pupils: Present: normal accommodation - ENT ENT exam: Present: mucous membranes moist - Neck Neck exam: Present: normal inspection - Respiratory Respiratory exam: Present: CTAB. Absent: rales, respiratory distress, rhonchi, wheezes - Cardiovascular Cardiovascular exam: Present: RRR, +S1, +S2 - GI/Abdominal GI/Abdominal exam: Present: distended (obese), normal bowel sounds, soft. Absent: tenderness - Extremities Exam Extremities exam: Present: pedal edema (2+ LLE), tenderness (Lower portion of the LLE). Absent: joint swelling - Expanded Lower Extremity Exam 1 - Erythematous, warm, tender. Venous stasis dermatitis lesion overlying the anterior aspect. 2 - Erythematous, warm, tender - Neurological Exam Neurological exam: Present: alert, oriented X3, no focal deficits - Psychiatric Psychiatric exam: Present: normal affect, normal mood - Skin Skin exam: Present: dry, intact, normal color, warm Infectious Disease CN: Results - Labs CBC & Chem 7: 12/15/16 04:56 12/15/16 09:48 Serology: Serology 12/10/16 Range/Units 22:30 Urine Color Yellow (Yellow) Urine Clarity Clear (Clear) Urine pH 7.0 (5.0-8.0) pH Units Ur Specific [place] 1.020 (1.010-1.025) Urine Protein Trace (Neg-Trace) mg/dL Urine Glucose (UA) Normal (Normal) mg/dL Urine Ketones Negative (Negative) mg/dL Urine Blood Large H (Negative) Urine Nitrite Negative (Negative) Urine Bilirubin Negative (Negative) Urine Urobilinogen 4.0 H (Normal) mg/dL Ur Leukocyte Esterase Negative (Negative) Urine Microscopic RBC TNTC H (0-3) per hpf Urine Microscopic WBC 3-5 H (0-3) per hpf Ur Squamous Epith Cells Moderate H (None-Few) per lpf Urine Bacteria None Seen (None-Few) per hpf Hyaline Casts None Seen (None-Few) per lpf Consult Discharge Plan - Plan Instructions: Sulfamethoxazole/Trimethoprim (By mouth), Lisinopril (By mouth), Levofloxacin (By mouth), Cellulitis (DC), Sepsis (DC), Chronic Hypertension (DC) Additional Instructions: Follow up with your PCP in 1 week for cellulitis of left lower leg, hypertension , weight loss. You are being given lab slips to have BMP and ESR measurements taken at an [facility] lab on 12/20/16. Check your blood pressure twice daily (same time in the morning and same time in the evening), record your measurements and take to your family doctor. Keep your appointment with Dermatology 12/17/16 at 9:30 am. Eat a low salt, low fat diet. Fluid restriction 1.8L per day. Referrals: [facility] [Provider Group] - 12/17/16 9:30 am (This appointment will be with Dr. Shepherd. ) NO,PCP [Non-Partnered Physician] - Prescriptions: Clotrimazole 1% CRM [Lotrimin 1%] 1 appl TP TID #1 tube Comp.stocking,Knee,Regular,Lrg [Relief Knee Open Toe] 1 each MC DAILY #7 each Furosemide [Lasix] 40 mg PO DAILY #30 tablet HYDROcodone/Acet 10/325 mg [Sherborn 10-325 mg] 1 each PO Q8H PRN #14 tablet PRN Reason: moderate pain 4-6 Levofloxacin 500 mg PO DAILY #14 tablet Lisinopril [Zestril] 40 mg PO DAILY #30 tablet Sulfamethoxazole/Trimeth DS [Bactrim DS] 1 each PO BID #28 tablet
--- NOTE | 2016-12-13 16:05 | Internal Med Progress Note ---
<Shalom Franco - Last Filed: 12/13/16 17:16> Date of Encounter: 12/13/16 Time of Encounter: 11:45 - Assessment and plan (1) Sepsis Current Visit: No Status: Acute Assessment and plan: Patient No longer meets SIRS or QSOFa criteria. WBC trending up slightly. Clinically appears some better today. continue Zosyn Continue Vancomycin. CT of the leg revealed persistent cellulitis. No abscess. CT abdomen was unremarkable. Has tinea pedis. Will add fluconazole. ID consulted. appreciate their input. Qualifiers: Sepsis type: sepsis due to unspecified organism Qualified Code(s): A41.9 - Sepsis, unspecified organism (2) Cellulitis and abscess of leg Current Visit: No Status: Acute Assessment and plan: as stated above (3) Morbid obesity with BMI of 50.0-59.9, adult Current Visit: Yes Status: Chronic Assessment and plan: advise weight loss (4) Leukocytosis Current Visit: No Status: Acute Assessment and plan: mild trend up . Qualifiers: Qualified Code(s): D72.829 - Elevated white blood cell count, unspecified (5) Hypertension Current Visit: No Status: Acute Assessment and plan: continue amlodipine. Qualifiers: Hypertension type: essential hypertension Qualified Code(s): I10 - Essential (primary) hypertension (6) DVT prophylaxis Current Visit: Yes Status: Acute Assessment and plan: On Lovenox. - Subjective Interval history: No major event overnight Patient states he still has some pain in his left leg this AM but it is still well controlled.He has no further complaints or concerns at this time. - Constitutional Vitals: Temp Pulse Resp BP Pulse Ox 97.1 F L 66 17 150/52 96 12/13/16 14:58 12/13/16 14:58 12/13/16 14:58 12/13/16 14:58 12/13/16 14:58 General appearance: Present: cooperative, A&O X 3, morbidly obese, no acute distress, answers questions appropriately - Head Head exam: Present: atraumatic, normal inspection, normocephalic - Eye Eye exam: Present: PERRL, conjuntiva pink, sclera anicteric Pupils: Present: PERRL - Neck Neck exam general surgery: Present: supple, trachea midline. Absent: lymphadenopathy - Respiratory Respiratory exam: Present: CTAB. Absent: accessory muscle use, rales, rhonchi, wheezes - Cardiovascular Cardiovascular exam: Present: RRR, +S1, +S2. Absent: diastolic murmur, gallop, rubs, systolic murmur - GI/Abdominal GI/Abdominal exam: Present: normal bowel sounds, soft, no peritoneal signs. Absent: distended, tenderness - Extremities Exam Extremities exam: Present: warm, radial pulses palpable and symetrical. Absent : calf tenderness, cyanotic, pedal edema Additional comments: atient has had some improvement since yesterday however it is a small improvement. No weeping of the leg. Internal Medicine: Result - Labs CBC & Chem 7: 12/13/16 04:29 12/12/16 05:19 Labs: Short CBC 12/13/16 Range/Units 04:29 WBC 13.3 H (4.3-11.1) K/mcL Hgb 12.9 (12.9-16.9) g/dL Hct 39.8 (37.5-50.1) % Plt Count 414 H (140-400) K/mcL Neutrophils # 9.3 H (1.6-8.9) K/mcL - ABG Interpretation ABG results: PT/INR, D-dimer PT 12.4 Seconds (9.4-12.1) H 12/05/16 17:12 Consult Discharge Plan - Plan Referrals: NO,PCP [Non-Partnered Physician] - <Sarah Ren E - Last Filed: 12/13/16 18:10> Date of Encounter: 12/13/16 - Assessment and plan (1) Sepsis affecting skin Current Visit: Yes Status: Acute (2) Cellulitis Current Visit: No Status: Acute Qualifiers: Site of cellulitis: extremity Site of cellulitis of extremity: lower extremity Laterality: left Qualified Code(s): L03.116 - Cellulitis of left lower limb (3) Hypertension Current Visit: No Status: Acute Qualifiers: Hypertension type: essential hypertension Qualified Code(s): I10 - Essential (primary) hypertension (4) Heart failure Current Visit: Yes Status: Acute Qualifiers: Heart failure type: diastolic Heart failure chronicity: acute on chronic Qualified Code(s): I50.33 - Acute on chronic diastolic (congestive) heart failure (5) Morbid obesity with BMI of 50.0-59.9, adult Current Visit: Yes Status: Chronic - Constitutional Vitals: Temp Pulse Resp BP Pulse Ox 97.1 F L 66 17 150/52 96 12/13/16 14:58 12/13/16 14:58 12/13/16 14:58 12/13/16 14:58 12/13/16 14:58 Internal Medicine: Result - Labs CBC & Chem 7: 12/13/16 04:29 12/12/16 05:19 Labs: Short CBC 12/13/16 Range/Units 04:29 WBC 13.3 H (4.3-11.1) K/mcL Hgb 12.9 (12.9-16.9) g/dL Hct 39.8 (37.5-50.1) % Plt Count 414 H (140-400) K/mcL Neutrophils # 9.3 H (1.6-8.9) K/mcL - ABG Interpretation ABG results: PT/INR, D-dimer PT 12.4 Seconds (9.4-12.1) H 12/05/16 17:12 - Attending Attestation I examined this patient and reviewed laboratory, imaging and all diagnostic data. My medical decision-making was reviewed with Dr Franco - Resident Physician. I agree with the documented findings, disposition and treatment plan as described above
[2016-12-13] MEDS: Clotrimazole 1% CRM 15 GM TUBE TP SCH ×2 (19:07→22:43)
[2016-12-13] MEDS: Vancomycin 2,000 MG in D5% in Water 500 ML IVPB SCH (22:42)
[2016-12-14] MEDS: Piperacillin/Tazobactam 3.375 GM in D5% in Water (Mini-Bag+) 100 ML IVPB SCH ×4 (00:15→23:39)
[2016-12-14] MEDS: *HR* HYDROcodone/Acet 10/325 mg TABLET PO PRN ×6 (00:24→20:57)
[2016-12-14] MEDS: *HR* Enoxaparin 30 MG/0.3 ML SYRINGE SQ SCH ×2 (04:58→16:42)
[2016-12-14 05:02] LABS: Basophils # 0.1 K/mcL (0.0-0.2); Basophils % 0.5 %; Eosinophils # 0.2 K/mcL (0.0-0.6); Eosinophils % 1.2 %; Hematocrit 36.7 % (37.5-50.1); Hemoglobin 11.7 g/dL (12.9-16.9); Immature Granulocytes % 3.6 % (0-4); Lymphocytes # 2.1 K/mcL (0.6-4.6); Lymphocytes % 16.2 %; Mean Corpuscular HGB Conc 31.9 g/dL (31.6-35.5); Mean Corpuscular Hemoglobin 29.3 pg (28.0-33.3); Mean Corpuscular Volume 91.8 fL (83.0-100.0); Mean Platelet Volume 9.8 fL (9.4-12.4); Monocytes # 1.6 K/mcL (0.0-1.3); Monocytes % 12.6 %; Neutrophils # 8.6 K/mcL (1.6-8.9); Platelet Count 368 K/mcL (140-400); Red Cell Distribution Width 13.6 % (11.5-14.5); Segmented Neutrophils % 65.9 %
[2016-12-14 05:46] LABS: BUN/Creatinine Ratio 19 (6-26); Blood Urea Nitrogen 15 mg/dL (8-26); Calcium 7.9 mg/dL (8.6-10.8); Carbon Dioxide 29 mEq/L (19-29); Chloride 104 mEq/L (98-109); Glucose 91 mg/dL (70-99); Osmolality,Calculated 286 (280-300); Potassium 4.1 mEq/L (3.5-4.5); Sodium 138 mEq/L (136-145); eGFR For African Americans > 60 (> 60); eGFR For Non-African Americans > 60 (> 60)
[2016-12-14] MEDS: Fluconazole 100 MG TABLET PO SCH (08:16)
[2016-12-14] MEDS: Furosemide 40 MG TABLET PO SCH ×2 (08:16→16:41)
[2016-12-14] MEDS: amLODIPine 5 MG TABLET PO SCH (08:16)
[2016-12-14] MEDS: Clotrimazole 1% CRM 15 GM TUBE TP SCH ×3 (08:19→20:47)
--- NOTE | 2016-12-14 08:33 | Internal Med Progress Note ---
<Sharda Zaman - Last Filed: 12/14/16 12:30> Date of Encounter: 12/14/16 Time of Encounter: 08:15 - Assessment and plan (1) Sepsis Current Visit: Yes Status: Acute Assessment and plan: Patient no longer meets SIRS or QSOFa criteria WBC unchanged from yesterday Swelling and erythema improved today following Unna boot x last 24 hours Continue Vancomycin and Zosyn CT of the leg revealed persistent cellulitis without abscess Wound cultures 12/13/16 resulted in no growth Blood cultures 12/05/16 resulted in no growth Patient has tinea pedis, which we are treating with oral fluconazole and topical clotrimazole ID consulted. We appreciate their input. Qualifiers: Sepsis type: sepsis due to unspecified organism Qualified Code(s): A41.9 - Sepsis, unspecified organism (2) Cellulitis and abscess of leg Current Visit: Yes Status: Acute Assessment and plan: as stated above (3) Leukocytosis Current Visit: No Status: Acute Assessment and plan: WBC 13.0 today, unchanged from yesterday Qualifiers: Leukocytosis type: unspecified Qualified Code(s): D72.829 - Elevated white blood cell count, unspecified (4) Hypertension Current Visit: No Status: Acute Assessment and plan: Discontinue amlodipine due to concern for side effect causing lower leg swelling Start Lisinopril and Hydralazine Qualifiers: Hypertension type: essential hypertension Qualified Code(s): I10 - Essential (primary) hypertension (5) Morbid obesity with BMI of 50.0-59.9, adult Current Visit: Yes Status: Chronic Assessment and plan: advise weight loss (6) Tinea pedis Current Visit: No Status: Acute Assessment and plan: Oral fluconazole Topical clotrimazole Qualifiers: Laterality: bilateral Qualified Code(s): B35.3 - Tinea pedis (7) DVT prophylaxis Current Visit: No Status: Acute Assessment and plan: Lovenox - Time Spent With Patient 25 - 35 minutes (30 minutes including time with patient and coordinating care) - Subjective Interval history: Patient reports that swelling to left leg has decreased in last 24 hours. He does complain of pain to left leg. Leg is especially tender to touch. Patient has remained afebrile in last 24 hours. - Constitutional Vitals: Temp Pulse Resp BP Pulse Ox 98.2 F 64 17 136/61 94 12/14/16 06:57 12/14/16 06:57 12/14/16 06:57 12/14/16 06:57 12/14/16 06:57 General appearance: Present: cooperative, A&O X 3, morbidly obese, no acute distress, answers questions appropriately - Head Head exam: Present: atraumatic, normocephalic - Eye Eye exam: Present: PERRL, conjuntiva pink, sclera anicteric - Neck Neck exam general surgery: Present: supple, trachea midline. Absent: lymphadenopathy - Respiratory Respiratory exam: Present: CTAB. Absent: accessory muscle use, rales, rhonchi, wheezes - Cardiovascular Cardiovascular exam: Present: RRR, +S1, +S2. Absent: diastolic murmur, gallop, rubs, systolic murmur - GI/Abdominal GI/Abdominal exam: Present: normal bowel sounds, soft, no peritoneal signs. Absent: distended, tenderness - Extremities Exam Extremities exam: Present: pedal edema (2+ non pitting edema to left lower leg) , tenderness (left lower leg), warm Additional comments: Left lower leg: non-pitting edema from foot to level of calf, edema decreased from yesterday Erythema, warmth, tenderness to touch Large plaques of necrotic tissue to anterior and posterior lower leg, unchanged from yesterday - Neurological Exam Neurological exam: Present: CN II-XII intact, oriented X3, no focal deficits. Absent: pronater drift, facial droop, speech deficit - Skin Skin exam: Present: dry, intact Internal Medicine: Result - Labs CBC & Chem 7: 12/14/16 04:25 12/14/16 05:15 Labs: Short CBC 12/14/16 Range/Units 04:25 WBC 13.0 H (4.3-11.1) K/mcL Hgb 11.7 L (12.9-16.9) g/dL Hct 36.7 L (37.5-50.1) % Plt Count 368 (140-400) K/mcL Neutrophils # 8.6 (1.6-8.9) K/mcL BMP 12/14/16 05:15 Sodium 138 Potassium 4.1 Chloride 104 Carbon Dioxide 29 BUN 15 Creatinine 0.79 Glucose 91 Calcium 7.9 L - ABG Interpretation ABG results: PT/INR, D-dimer PT 12.4 Seconds (9.4-12.1) H 12/05/16 17:12 Consult Discharge Plan - Plan Referrals: [facility] [Provider Group] - 12/17/16 9:30 am (This appointment will be with Dr. Shepherd. ) NO,PCP [Non-Partnered Physician] - <Sarah Ren - Last Filed: 12/14/16 16:53> Date of Encounter: 12/14/16 - Assessment and plan (1) Sepsis affecting skin Current Visit: Yes Status: Acute (2) Cellulitis Current Visit: No Status: Acute Qualifiers: Site of cellulitis: extremity Site of cellulitis of extremity: lower extremity Laterality: left Qualified Code(s): L03.116 - Cellulitis of left lower limb (3) Hypertension Current Visit: No Status: Acute Qualifiers: Hypertension type: essential hypertension Qualified Code(s): I10 - Essential (primary) hypertension (4) Heart failure Current Visit: Yes Status: Acute Qualifiers: Heart failure type: diastolic Heart failure chronicity: acute on chronic Qualified Code(s): I50.33 - Acute on chronic diastolic (congestive) heart failure (5) Morbid obesity with BMI of 50.0-59.9, adult Current Visit: Yes Status: Chronic - Constitutional Vitals: Temp Pulse Resp BP Pulse Ox 98.1 F 70 17 143/68 97 12/14/16 15:28 12/14/16 15:28 12/14/16 15:28 12/14/16 15:28 12/14/16 15:28 Internal Medicine: Result - Labs CBC & Chem 7: 12/14/16 04:25 12/14/16 05:15 Labs: Short CBC 12/14/16 Range/Units 04:25 WBC 13.0 H (4.3-11.1) K/mcL Hgb 11.7 L (12.9-16.9) g/dL Hct 36.7 L (37.5-50.1) % Plt Count 368 (140-400) K/mcL Neutrophils # 8.6 (1.6-8.9) K/mcL BMP 12/14/16 05:15 Sodium 138 Potassium 4.1 Chloride 104 Carbon Dioxide 29 BUN 15 Creatinine 0.79 Glucose 91 Calcium 7.9 L - ABG Interpretation ABG results: PT/INR, D-dimer PT 12.4 Seconds (9.4-12.1) H 12/05/16 17:12 - Attending Attestation I examined this patient and reviewed laboratory, imaging and all diagnostic data. My medical decision-making was reviewed with Dr Zaman - Resident Physician. I agree with the documented findings, disposition and treatment plan as described above
[2016-12-14] MEDS: Vancomycin 2,000 MG in D5% in Water 500 ML IVPB SCH ×2 (10:47→23:02)
--- NOTE | 2016-12-14 11:58 | Infectious Disease Progress No ---
Date of Encounter: 12/14/16 Time of Encounter: 11:56 - Assessment and Plan (1) Sepsis affecting skin Current Visit: Yes Status: Acute The patient had fever and leukocytosis on admission. Likely secondary to cellulitis of the LLE. Improved. The patient has been afebrile. He continues to have leukocytosis. Blood cultures drawn 12/05/16 are negative x 2 sets. (2) Cellulitis Current Visit: Yes Status: Acute Location: LLE. Causative organism unclear, high index of suspicion for gram negative causative organism. CT of the LLE completed 12/06/16 showed findings consistent with cellulitis. Repeat CT completed 12/11/16 due to lack of improvement of the patient's symptoms again showed findings consistent with cellulitis. No abscess, fluid collection, or foreign body were seen on either CT. The patient reports he has had one episode of cellulitis in the LLE every year for the past 5 years. Likely multifactorial --> morbid obesity + vascular insufficiency + chronic tinea pedis. ESR >130. CRP 66. DVT study negative. Continue aggressive wound care and compression dressings. Consider consulting the wound care team. The patient may benefit from the use of an UNNA boot. Patient advised to wear compression hose at all times once cellulitis has healed as venous insufficiency can lead to edema which can lead to microperforations in the skin that give normal skin meliton the opportunity to cause an infection. Additionally, once the infection is healed, the patient should apply a moisturizing cream at least once daily to the BLE. Appropriate treatment and prevention of further tinea pedis infections can also prevent further infections. Continue Vancomycin IV. Pharmacy to dose. Goal trough approximately 15. Continue Zosyn 3.375 grams IV Q8H. Duration of treatment depends on the clinical picture, but would recommend a total of 14 days of antibiotics. Can likely transition to PO antibiotics when ready for discharge. Recommend Bactrim DS 1 tab PO BID and Levaquin 500mg PO daily to complete the course of treatment. Monitor renal function and dose-adjust antibiotics. Qualifiers: Site of cellulitis: extremity Site of cellulitis of extremity: lower extremity Laterality: left Qualified Code(s): L03.116 - Cellulitis of left lower limb (3) Tinea pedis Current Visit: No Status: Acute Location: bilateral feet. Likely secondary to poor foot hygiene and the patient using public showers at truck stops and not wearing protective footwear. Fluconazole started by the primary team. Can likely either switch to PO x 14 days or treat with topical agent like clotrimazole x 4 weeks to minimize systemic effects. Discussed the importance of good foot hygiene with the patient, including washing tennis shoes, changing socks frequently, and replacing the insoles of shoes he has worn recently. We also discussed the importance of wearing protective footwear when using public showers. Qualifiers: Laterality: bilateral Qualified Code(s): B35.3 - Tinea pedis (4) Venous insufficiency Current Visit: Yes Status: Chronic Likely contributing to the patient's recurrence of cellulitis. Recommend that the patient wear compression stockings to the BLE at all times once the cellulitis has resolved. (5) Morbid obesity with BMI of 50.0-59.9, adult Current Visit: Yes Status: Chronic - Subjective Interval history: Patient seen and examined. No acute events noted overnight. Patient states that overall he feels better and thinks his leg looks better today. Denies fevers or chills. Denies chest pain, shortness of breath, or cough. Denies nausea, vomiting, diarrhea or constipation. Reports soft, formed BM daily since admission. Denies urinary complaints. Denies oral thrush or new skin lesions. Reports still has pain in the LLE, improved since yesterday. States he thinks the redness and swelling are better today as well. Infect Dis PN-Objective Data - Labs CBC & Chem 7: 12/14/16 04:25 12/14/16 05:15 Labs: Laboratory Results - last 24 hr 12/14/16 12/14/16 12/14/16 04:25 04:25 05:15 WBC 13.0 H RBC 4.00 L Hgb 11.7 L Hct 36.7 L MCV 91.8 MCH 29.3 MCHC 31.9 RDW 13.6 Plt Count 368 MPV 9.8 Immature Gran % 3.6 Seg Neutrophils % 65.9 Lymphocytes % 16.2 Monocytes % 12.6 Eosinophils % 1.2 Basophils % 0.5 Neutrophils # 8.6 Lymphocytes # 2.1 Monocytes # 1.6 H Eosinophils # 0.2 Basophils # 0.1 Sodium 138 Potassium 4.1 Chloride 104 Carbon Dioxide 29 BUN 15 Creatinine 0.79 Est GFR ( Amer) > 60 Est GFR (Non-Af Amer) > 60 BUN/Creatinine Ratio 19 Glucose 91 Calculated Osmolality 286 Calcium 7.9 L Specimen Rejected Hemolyzed Cultures: Cultures 12/13/16 11:45 Wound Culture - Preliminary Left Leg No growth. Serology 12/10/16 Range/Units 22:30 Urine Color Yellow (Yellow) Urine Clarity Clear (Clear) Urine pH 7.0 (5.0-8.0) pH Units Ur Specific [place] 1.020 (1.010-1.025) Urine Protein Trace (Neg-Trace) mg/dL Urine Glucose (UA) Normal (Normal) mg/dL Urine Ketones Negative (Negative) mg/dL Urine Blood Large H (Negative) Urine Nitrite Negative (Negative) Urine Bilirubin Negative (Negative) Urine Urobilinogen 4.0 H (Normal) mg/dL Ur Leukocyte Esterase Negative (Negative) Urine Microscopic RBC TNTC H (0-3) per hpf Urine Microscopic WBC 3-5 H (0-3) per hpf Ur Squamous Epith Cells Moderate H (None-Few) per lpf Urine Bacteria None Seen (None-Few) per hpf Hyaline Casts None Seen (None-Few) per lpf Exam - Constitutional Vitals: Temp Pulse Resp BP Pulse Ox 98.2 F 81 17 146/73 95 12/14/16 11:55 12/14/16 11:55 12/14/16 11:55 12/14/16 11:55 12/14/16 11:55 General appearance: cooperative, morbidly obese, no acute distress - Head Head exam: Present: atraumatic, normal inspection, normocephalic - Eye Eye exam: Present: EOMI, normal appearance, PERRL Pupils: Present: normal accommodation - ENT ENT exam: Present: mucous membranes moist - Neck Neck exam: Present: normal inspection - Respiratory Respiratory exam: Present: CTAB. Absent: rales, respiratory distress, rhonchi, wheezes - Cardiovascular Cardiovascular exam: Present: RRR, +S1, +S2 - GI/Abdominal GI/Abdominal exam: Present: distended (obese), normal bowel sounds, soft. Absent: tenderness - Extremities Exam Extremities exam: Present: pedal edema (2+ LLE), tenderness (LLE). Absent: joint swelling - Expanded Lower Extremity Exam 1 - Erythema, warmth, tenderness with large ulcer. 2 - Erythema, warmth, tenderness with large ulcer. - Neurological Exam Neurological exam: Present: alert, oriented X3, no focal deficits - Psychiatric Psychiatric exam: Present: normal affect, normal mood - Skin Skin exam: Present: dry, normal color, warm Consult Discharge Plan - Plan Referrals: NO,PCP [Non-Partnered Physician] -
[2016-12-14] MEDS ORDERED: hydrALAZINE 25 MG TABLET PO ONE (17:00)
--- NOTE | 2016-12-14 19:02 | Arterial Study Report ---
LE Arterial Physiologic Study Patient Name:Epifanio Hi Order Number:[id number] Procedure Date:12/12/2016 Date:1960Age:56 yrs Gender:Male Lt BP:133 / mmHg Rt.BP:127 / mmHgHeart Rate: Location:[facility] Room #: [facility] Chemic Mangler:Gage Peterson [facility] Referring MD:Shalom Franco DO Reading MD:Jarrod Simms MD Primary Indications:Atherosclerosis of aorta Risk Factors Yes/No none Impressions: 1) Bilateral lower extremities waveform demonstrates normal hemodynamics. 2) bilateral Ankle Brachial Index is normal. 3) Overall Impression: Arterial hemodynamics are well maintained at rest. Findings LE Arterial Physiologic Exam: Segmental Pressures: Right: The right posterior tibial pressure is 175 mmHg with an index of 1.32. The right dorsalis pedis pressure is 168 mmHg with an index of 1.26. Left: The left posterior tibial pressure is 168 mmHg with an index of 1.26. The left dorsalis pedis pressure is 171 mmHg with an index of 1.29. PVR: Right: The PVR waveforms are mildly diminished in the right ankle. Left: The PVR waveforms are mildly diminished in the left ankle. Physiologic Test Results: The physiologic study was within normal limits. There is no clinically significant arterial insufficiency demonstrated on the right or left at rest. The PATRICIA was within normal limits. There is no clinically significant arterial insufficiency demonstrated on the right or left at rest. Prior Study: No prior study available for comparison. Segmental Pressures Side Location Pressure Index Result Right Posterior Tibial 175 1.32 Right Dorsalis Pedis 168 1.26 Left Posterior Tibial 168 1.26 Left Dorsalis Pedis 171 1.29 Ankle Brachial Index Right Systolic Diastolic PATRICIA Brachial 127 1.32 Dorsalis Pedis 168 1.26 Posterior Tibial 175 1.32 Left Systolic Diastolic PATRICIA Brachial 133 1.29 Dorsalis Pedis 171 1.29 Posterior Tibial 168 1.26 Updated by Jarrod Simms MD on 12/14/2016 6:55:15 PM with Status of Final electronically signed on 12/14/2016 6:55:29 PM with status of Final
[2016-12-15] MEDS: *HR* HYDROcodone/Acet 10/325 mg TABLET PO PRN ×2 (03:35→09:19)
[2016-12-15 05:45] LABS: BUN/Creatinine Ratio 21 (6-26); Blood Urea Nitrogen 20 mg/dL (8-26); Carbon Dioxide 30 mEq/L (19-29); Chloride 99 mEq/L (98-109); Glucose 99 mg/dL (70-99); Magnesium 2.2 mg/dL (1.6-2.6); Osmolality,Calculated 289 (280-300); Potassium 4.9 mEq/L (3.5-4.5); Sodium 138 mEq/L (136-145); eGFR For African Americans > 60 (> 60); eGFR For Non-African Americans > 60 (> 60)
[2016-12-15 05:46] LABS: Calcium 9.2 mg/dL (8.6-10.8)
[2016-12-15] MEDS: *HR* Enoxaparin 30 MG/0.3 ML SYRINGE SQ SCH (06:09)
[2016-12-15] MEDS ORDERED: Lisinopril 20 MG TABLET PO SCH (09:00)
[2016-12-15] MEDS ORDERED: hydrALAZINE 25 MG TABLET PO SCH (09:00)
[2016-12-15] MEDS: Piperacillin/Tazobactam 3.375 GM in D5% in Water (Mini-Bag+) 100 ML IVPB SCH (09:06)
[2016-12-15] MEDS: Furosemide 40 MG TABLET PO SCH (09:06)
[2016-12-15] MEDS: Fluconazole 100 MG TABLET PO SCH (09:08)
[2016-12-15 09:32] LABS: Basophils % 0.4 %; Eosinophils # 0.2 K/mcL (0.0-0.6); Eosinophils % 1.7 %; Hematocrit 36.7 % (37.5-50.1); Hemoglobin 11.8 g/dL (12.9-16.9); Immature Granulocytes % 3.7 % (0-4); Lymphocytes % 18.9 %; Mean Corpuscular HGB Conc 32.2 g/dL (31.6-35.5); Mean Corpuscular Hemoglobin 29.2 pg (28.0-33.3); Mean Corpuscular Volume 90.8 fL (83.0-100.0); Mean Platelet Volume 9.9 fL (9.4-12.4); Monocytes # 1.4 K/mcL (0.0-1.3); Monocytes % 13.4 %; Neutrophils # 6.6 K/mcL (1.6-8.9); Platelet Count 382 K/mcL (140-400); Red Blood Count 4.04 M/mcL (4.19-5.50); Red Cell Distribution Width 13.6 % (11.5-14.5); Segmented Neutrophils % 61.9 %
--- NOTE | 2016-12-15 10:23 | Discharge Summary ---
<AustynShardasuly Reynolds - Last Filed: 12/15/16 12:43> Date of Encounter: 12/15/16 Time of Encounter: 08:15 - Discharge Diagnosis (1) Sepsis Priority: Primary Status: Acute Qualifiers: Sepsis type: sepsis due to unspecified organism Qualified Code(s): A41.9 - Sepsis, unspecified organism (2) Cellulitis and abscess of leg Priority: Primary Status: Acute (3) Leukocytosis Priority: Secondary Status: Acute Qualifiers: Leukocytosis type: unspecified Qualified Code(s): D72.829 - Elevated white blood cell count, unspecified (4) Hypertension Priority: Secondary Status: Chronic Qualifiers: Hypertension type: essential hypertension Qualified Code(s): I10 - Essential (primary) hypertension (5) Morbid obesity with BMI of 50.0-59.9, adult Priority: Secondary Status: Chronic (6) Tinea pedis Priority: Secondary Status: Acute Qualifiers: Laterality: bilateral Qualified Code(s): B35.3 - Tinea pedis (7) DVT prophylaxis Priority: Secondary Status: Acute - Discharge Medications Prescriptions: Clotrimazole 1% CRM [Lotrimin 1%] 1 appl TP TID #1 tube Comp.stocking,Knee,Regular,Lrg [Relief Knee Open Toe] 1 each MC DAILY #7 each Furosemide [Lasix] 40 mg PO DAILY #30 tablet HYDROcodone/Acet 10/325 mg [Wallaceton 10-325 mg] 1 each PO Q8H PRN #14 tablet PRN Reason: moderate pain 4-6 Levofloxacin 500 mg PO DAILY #14 tablet Lisinopril [Zestril] 40 mg PO DAILY #30 tablet Sulfamethoxazole/Trimeth DS [Bactrim DS] 1 each PO BID #28 tablet Home Medications: Clotrimazole 1% CRM [Lotrimin 1%] 1 appl TP TID #1 tube 12/15/16 [Rx] Comp.stocking,Knee,Regular,Lrg [Relief Knee Open Toe] 1 each MC DAILY #7 each [Rx] Furosemide [Lasix] 40 mg PO DAILY #30 tablet 12/15/16 [Rx] HYDROcodone/Acet 10/325 mg [Wallaceton 10-325 mg] 1 each PO Q8H PRN #14 tablet [Rx] Levofloxacin 500 mg PO DAILY #14 tablet 12/15/16 [Rx] Lisinopril [Zestril] 40 mg PO DAILY #30 tablet 12/15/16 [Rx] Sulfamethoxazole/Trimeth DS [Bactrim DS] 1 each PO BID #28 tablet 12/15/16 [Rx] Allergies/Adverse Reactions: Allergies No Known Allergies Allergy (Verified 03/26/15 05:28) Procedures/tests Complete & Pending: Procedures Performed prior 72 hours Category Date Time Status PATRICIA [EV ankle brachial index] Routine Y 12/12/16 11:34 Completed - Notes to Outpatient Provider Patient will need weekly ESR measurements to ensure resolution of infection Date of admission: 12/10/16 15:49 Primary care physician: Anabella Mena CNP Consults: 12/12/16 11:30 Consult to Infectious Diseases [CONS] Routine Consulting Provider: [facility] Marlene Reason for Consult: Cellulitis. Not improving as expected. Call Completed: Yes 12/12/16 11:35 Consult to Dairy Processing Equipment Operator [CONS] Routine Reason for SW Consult: discharge planning. 12/13/16 08:39 Consult to Invasive Line Access Team [CONS] Routine Reason for Consult: patient needs IV access, possible IV antibiotics Line Type: EPIV PICC line indications: Limited vascular access Discharging clinician: Sarah Ren Anticipated date of discharge: 12/15/16 - Patient Status Disposition: Home, Self-Care Condition: Good Functional capacity at discharge: independent ambulation Overall status at discharge: patient is progressing back to baseline - Discharge Instructions Instructions: Sulfamethoxazole/Trimethoprim (By mouth), Lisinopril (By mouth), Levofloxacin (By mouth), Cellulitis (DC), Sepsis (DC), Chronic Hypertension (DC) Follow Up With: [facility] [place] [Provider Group] - 12/17/16 9:30 am (This appointment will be with Dr. Shepherd. ) NO,PCP [Non-Partnered Physician] - Additional Instructions: Follow up with your PCP in 1 week for cellulitis of left lower leg, hypertension , weight loss. You are being given lab slips to have BMP and ESR measurements taken at an [place] lab on 12/20/16. Check your blood pressure twice daily (same time in the morning and same time in the evening), record your measurements and take to your family doctor. Keep your appointment with Dermatology 12/17/16 at 9:30 am. Eat a low salt, low fat diet. Fluid restriction 1.8L per day. - Diet and Activity Activity: increase activity as tolerated Diet: low fat, low cholesterol Hospital course: Mr. Hi is a 56 year old male who presented to [facility] ED on 12/05/16 with complaint of left lower extremity swelling, warmth, and redness. Patient was diagnosed with cellulitis and started on IV Vancomycin and IV Zosyn. CT of left lower leg revealed persistent cellulitis without abscess. Wound cultures and blood cultures were negative for growth. Infectious disease was consulted, who recommended coverage for gram negative and gram positive bacteria for a total of 14 days of antibiotics. Patient was found to have tenia pedis upon exam, which may have predisposed this patient to secondary bacterial infection. Tenia pedis was treated with Clotrimazole cream. Patient's Amlodipine was discontinued due to concern for leg swelling as a side effect. He was started on Lisinopril 40mg daily. Patient's leukocytosis has resolved. He is afebrile and stable for discharge at this time. He will follow-up with Dermatology at 9: 30 am on 12/17/16. He will be discharged with Bactrim, Zosyn, Clotrimazole, Triamcinolone, Desitin gauze, supplies and instructions for UNNA boots, Lisinopril. Patient does not have a PCP. He has been instructed to call the residency clinic to set up an appointment with Dr. Franco to follow up on cellulitis, hypertension, and weight loss. - Time Spent with Patient Total time spent providing and/or coordinating discharge services: Greater than 30 minutes (35 minutes including time with patient and coordinaing care) - Constitutional Vitals: Temp Pulse Resp BP Pulse Ox 97.7 F 65 16 133/73 92 12/15/16 07:29 12/15/16 07:29 12/15/16 07:29 12/15/16 07:29 12/15/16 07:29 General appearance: Present: cooperative, A&O X 3, morbidly obese, no acute distress, answers questions appropriately - Head Head exam: Present: atraumatic, normocephalic - Eye Eye exam: Present: PERRL, conjuntiva pink, sclera anicteric Pupils: Present: PERRL - Neck Neck exam general surgery: Present: supple, trachea midline. Absent: lymphadenopathy - Respiratory Respiratory exam: Present: CTAB. Absent: accessory muscle use, rales, rhonchi, wheezes - Cardiovascular Cardiovascular exam: Present: RRR, +S1, +S2. Absent: diastolic murmur, gallop, rubs, systolic murmur - GI/Abdominal GI/Abdominal exam: Present: normal bowel sounds, soft, no peritoneal signs. Absent: distended, tenderness - Extremities Exam Extremities exam: Present: pedal edema (2+ non-pitting edema to left lower extremities), warm, radial pulses palpable and symetrical. Absent: calf tenderness, cyanotic Additional comments: Left lower leg: edema is much improved from yesterday Leg continues to have erythema, warmth, tenderness to touch Large plaques of necrotic tissue to anterior and posterior lower leg are still present, but are sloughing when Unna boot is removed - Neurological Exam Neurological exam: Present: CN II-XII intact, oriented X3, no focal deficits. Absent: pronater drift, facial droop, speech deficit - Skin Skin exam: Present: dry, intact <Sarah Ren - Last Filed: 12/15/16 17:26> Date of Encounter: 12/15/16 - Discharge Diagnosis (1) Sepsis affecting skin Status: Acute (2) Cellulitis Status: Acute Qualifiers: Site of cellulitis: extremity Site of cellulitis of extremity: lower extremity Laterality: left Qualified Code(s): L03.116 - Cellulitis of left lower limb (3) Hypertension Status: Chronic Qualifiers: Hypertension type: essential hypertension Qualified Code(s): I10 - Essential (primary) hypertension (4) Heart failure Status: Acute Qualifiers: Heart failure type: diastolic Heart failure chronicity: acute on chronic Qualified Code(s): I50.33 - Acute on chronic diastolic (congestive) heart failure (5) Morbid obesity with BMI of 50.0-59.9, adult Status: Chronic Date of admission: 12/10/16 15:49 Primary care physician: Anabella Mena CNP Consults: 12/12/16 11:30 Consult to Infectious Diseases [CONS] Routine Consulting Provider: Infectious Disease Marlene Reason for Consult: Cellulitis. Not improving as expected. Call Completed: Yes 12/12/16 11:35 Consult to Dairy Processing Equipment Operator [CONS] Routine Reason for SW Consult: discharge planning. 12/13/16 08:39 Consult to Invasive Line Access Team [CONS] Routine Reason for Consult: patient needs IV access, possible IV antibiotics Line Type: EPIV PICC line indications: Limited vascular access Hospital course: Mr. Hi is a 56 year old male - Time Spent with Patient Total time spent providing and/or coordinating discharge services: - Constitutional Vitals: Temp Pulse Resp BP Pulse Ox 97.8 F 86 16 145/78 91 12/15/16 11:24 12/15/16 11:24 12/15/16 11:24 12/15/16 11:24 12/15/16 11:24 - Attending Attestation I examined this patient and reviewed laboratory, imaging and all diagnostic data. My medical decision-making was reviewed with Dr Zaman - Resident Physician. I agree with the documented findings, disposition and treatment plan as described above
[2016-12-15 11:25] VITALS: BP 145/78
[2016-12-15] MEDS ORDERED: Desitin (Zinc Oxide) 56 GM TUBE TP SCH (12:00)
[2016-12-15] MEDS: Clotrimazole 1% CRM 15 GM TUBE TP SCH (12:54)
[2016-12-15] MEDS ORDERED: Aminoglycoside Consult 1 EACH MC ONE (13:04)
== END 2016-12-15 13:05 | disposition home or self-care (01) | DRG 871 ==
LOC: EMEROO 12:22 → 3NENU 12:22 → 3BNU 12-12 16:33
PROVIDERS: ADMIT Internal Medicine Endocrinology, Diabetes & Metabolism; ATTEND Internal Medicine